=== PATIENT | male | born 1955 | race Caucasian/White ===

== ENCOUNTER 2021-09-03 08:45 | Outpatient (REF) | payer OTHER, SELFPAY ==
--- NOTE | ~2021-09-03 | XR_ITS ---
EXAMINATION: XR CHEST CLINICAL INFORMATION: Essential hypertension COMPARISON: None TECHNIQUE: 2 views of the chest were obtained. FINDINGS: The cardiac silhouette does not appear enlarged. Hilar and mediastinal contours are normal. There is question of an abnormal parenchymal density in the left upper lung overlying the posterior sixth rib. This measures approximately 1 cm. There is question of a 5 mm nodule in the right lateral costophrenic angle in between the right anterior seventh and eighth ribs. There is biapical pleural thickening. The lungs are otherwise clear. There is no pleural effusion or pneumothorax. There is loss of height of the L1 vertebral body suggestive of old moderate compression fracture. There are degenerative changes of the spine. XR/XR chest 2V IMPRESSION: Question abnormal parenchymal density in the left upper lung and 5 mm nodule in the right lateral costophrenic angle. Follow-up chest CT scan should be considered.
== END 2021-09-03 08:46 | disposition home or self-care (01) ==
LOC: HO.HMGCX 08:45
PROVIDERS: PCP Internal Medicine; Visit Provider Internal Medicine
DX: I10 Essential (primary) hypertension (principal); I73.9 Peripheral vascular disease, unspecified
CPT/HCPCS: 71046

== ENCOUNTER 2021-09-04 08:30 | Outpatient (REF) | payer OTHER, SELFPAY ==
[2021-09-04 11:38] LABS: Hematocrit 50.2 % (42-52); Hemoglobin 16.7 g/dl (14.0-18.0); Mean Corpuscular HGB Conc 33.3 g/dl (31.0-36.0); Mean Corpuscular Hemoglobin 33.7 pg (27.0-33.0); Mean Corpuscular Volume 101.2 fL (80-98); Mean Platelet Volume 9.9 fL (9.4-12.4); Platelet Count 263 X10*3/uL (160-400); Red Blood Count 4.96 X10*6/uL (4.60-5.80); Red Cell Distribution Width 13.8 % (11.0-16.0); White Blood Count 6.9 X10*3/uL (4.8-10.8)
[2021-09-04 11:44] LABS: Alanine Aminotransferase 14 U/L (0-40); Alkaline Phosphatase 109 U/L (39-117); Anion Gap 14 (12-20); Aspartate Amino Transferase 17 U/L (5-37); Bilirubin Total 0.9 mg/dL (0.0-1.0); Blood Urea Nitrogen 12 mg/dL (9-16); Calcium 9.2 mg/dL (8.4-10.2); Carbon Dioxide 27 mmol/L (22-29); Chloride 102 mmol/L (96-108); Cholesterol 231 mg/dL; Estimated Glomerular Filt Rate > 60; Glucose Fasting 102 mg/dL (60-99); HDL Cholesterol 36 mg/dL; LDL Cholesterol Calculated 163 mg/dl; Potassium 4.3 mmol/L (3.3-5.1); Sodium 139 mmol/L (135-145); Total Protein 7.1 g/dL (6.5-8.0); Triglycerides 162 mg/dL
[2021-09-04 12:10] LABS: Prostate Specific Antigen Scr 0.59 ng/mL (<0.05-4.0); TSH reflex Free T4 2.17 uIU/mL (0.32-4.0)
== END 2021-09-04 08:31 | disposition home or self-care (01) ==
LOC: HO.HMGCLDS 08:30
PROVIDERS: PCP Internal Medicine; Visit Provider Internal Medicine
DX: Z00.00 Encounter for general adult medical examination without abnormal findings (principal); I10 Essential (primary) hypertension; M65.30 Trigger finger, unspecified finger; R91.1 Solitary pulmonary nodule; R05.9 Cough, unspecified; F17.200 Nicotine dependence, unspecified, uncomplicated; Z12.5 Encounter for screening for malignant neoplasm of prostate
CPT/HCPCS: 36415; 80053; 80061; 84153; 84443; 85027

== ENCOUNTER 2021-09-17 07:32 | Outpatient (REF) | payer OTHER, SELFPAY ==
--- NOTE | ~2021-09-17 | CT_ITS ---
EXAMINATION: CT CHEST WITHOUT CONTRAST CLINICAL INFORMATION: Follow-up pulmonary nodule COMPARISON: Previous chest x-ray August 2021 TECHNIQUE: Multidetector volumetric CT imaging of the chest was done. Axial MIP volume rendering provided. Sagittal and coronal reformatted images were obtained. This CT examination was performed using dose optimization techniques as appropriate, variously including the following: *Automated exposure control *Adjustment of mA and/or kV according to patient size (this includes techniques or standardized protocols for targeted exams where dose is matched to indication/reason for exam; i.e. extremities or head) *Use of iterative reconstruction technique DLP: 197 mGy-cm FINDINGS: LUNGS: There are increased peripheral interstitial reticular markings. There are areas of increased peripheral groundglass attenuation. There are areas of traction bronchiolectasis. This is seen diffusely throughout the lungs but greatest at the lung bases. No honeycombing is seen. There is evidence of mild paraseptal emphysema. No endobronchial or endotracheal lesion is seen. There is a 2 mm peripheral left upper lobe nodule axial image 172 series 7. There is a 2 mm peripheral right lower lobe nodule axial image 230 series 7. There is question of a 4 mm right lower lobe nodule axial image 279 series 7 and axial image 361 series 7 versus changes related to interstitial lung disease. MEDIASTINUM: There are small mediastinal lymph nodes. The mediastinum is otherwise normal. PLEURA: There is no pleural effusion. No pleural mass or thickening. AXILLA: There are small bilateral axillary lymph nodes. No enlarged axillary lymph nodes or chest wall mass is seen. UPPER ABDOMEN: Unremarkable. OSSEOUS STRUCTURES: There are degenerative changes of the spine. There are old mild T12 and L1 vertebral body compression fractures versus Schmorl's nodes. CT/CT chest wo con IMPRESSION: Paraseptal emphysema. Mild peripheral interstitial lung disease. Pulmonary consultation may be helpful. Small pulmonary nodules or micronodules, largest measuring 4 mm.
== END 2021-09-17 07:33 | disposition home or self-care (01) ==
LOC: HO.CT 07:32
PROVIDERS: Visit Provider Internal Medicine
DX: R91.1 Solitary pulmonary nodule (principal); R05.9 Cough, unspecified; F17.200 Nicotine dependence, unspecified, uncomplicated
CPT/HCPCS: 71250

== ENCOUNTER 2021-09-24 14:01 | Outpatient (REF) | payer OTHER, SELFPAY ==
--- NOTE | ~2021-09-24 | XR_ITS ---
EXAMINATION: XR CHEST CLINICAL INFORMATION: Primary hypertension COMPARISON: Previous chest x-ray August [address] September 2021 TECHNIQUE: Frontal view of the chest was obtained. FINDINGS: The cardiac and mediastinal contours are stable. The lungs are clear. There is no pleural effusion or pneumothorax. There are degenerative changes of the spine. XR/XR chest 1V IMPRESSION: No evidence for acute disease in the chest.
--- NOTE | ~2021-09-24 | US_ITS ---
EXAMINATION: NONINVASIVE ASSESSMENT OF THE ARTERIES OF BOTH LOWER EXTREMITIES WITH PVR EXAM AND BILATERAL LOWER EXTREMITY DUPLEX CLINICAL INFORMATION: Peripheral vascular disease, bilateral TECHNIQUE: Bilateral lower extremity duplex Doppler techniques with wave form analysis and measurement of velocities in the common femoral, profunda femoral, superficial femoral, popliteal and tibial arteries. The study was performed only at rest. COMPARISON: None FINDINGS: a) AT REST: RIGHT LEG: Right direct duplex Doppler findings: There is evidence of atherosclerotic disease with vessel wall calcification. There is plaque seen in the right common femoral artery. Common femoral artery: 112 cm/s, Diastolic flow reversal: No biphasic. * Superficial femoral artery (proximal, mid, distal): 173, 76 and 137 cm/s, Diastolic flow reversal: No. Biphasic. * Popliteal artery: 81 cm/s, Diastolic flow reversal: Yes * Posterior tibial artery: 52 cm/s, Diastolic flow reversal: No. Biphasic. LEFT LEG: Left direct duplex Doppler findings: There is evidence of atherosclerotic disease. There is plaque seen in the left common femoral artery. * Common femoral artery: 38 cm/s, Diastolic flow reversal: No. Monophasic. * Superficial femoral artery (proximal, mid, distal): 38 cm/s proximally. The mid and distal left SFA is occluded. Diastolic flow reversal: No. Monophasic. * Popliteal artery: 24 cm/s, Diastolic flow reversal: No. Monophasic. * Posterior tibial artery: 19 cm/s, Diastolic flow reversal: No. Monophasic. * US/US arterial duplex LE BI IMPRESSION: Right: Mild atherosclerotic disease. Left: Severe atherosclerotic disease. Occluded mid and distal left superficial femoral artery. Abnormal left common femoral artery peak systolic velocity and waveform suggestive of left-sided inflow disease as well.
== END 2021-09-24 14:02 | disposition home or self-care (01) ==
LOC: HO.US 14:01
PROVIDERS: Visit Provider Internal Medicine
DX: I73.9 Peripheral vascular disease, unspecified (principal); I10 Essential (primary) hypertension
CPT/HCPCS: 71045; 93925

== ENCOUNTER 2021-10-22 08:26 | Outpatient (REF) | payer OTHER, SELFPAY ==
--- NOTE | ~2021-10-22 | US_ITS ---
EXAMINATION: US RETROPERITONEAL LIMITED (AORTA) CLINICAL INFORMATION: Peripheral vascular disease. Nicotine dependence. COMPARISON: None TECHNIQUE: Bills-scale, color Doppler and spectral Doppler evaluation of the abdominal aorta. FINDINGS: Is mild atherosclerotic plaque. The abdominal aorta is normal in caliber. The measurements of the aorta in maximum AP and transverse dimensions respectively are as follows: Proximal: 3.0 x 3.1 cm. Mid: 2.3 x 2.5 cm. Distal: 2.1 x 2.1 cm. PSV: 42 cm/s. The measurements of the common iliac arteries in maximum AP and TRV dimensions are as follows: Right: AP: 1.4 cm. TRV: 1.2 cm. Left: AP: 1.4 cm. TRV: 1.2 cm. US/US aorta IMPRESSION: No aneurysm seen.
== END 2021-10-22 08:27 | disposition home or self-care (01) ==
LOC: HO.HMGCX 08:26
PROVIDERS: PCP Internal Medicine; Visit Provider Internal Medicine
DX: I73.9 Peripheral vascular disease, unspecified (principal); F17.200 Nicotine dependence, unspecified, uncomplicated
CPT/HCPCS: 76775

== ENCOUNTER → 2021-10-30 10:12 | Outpatient (BNVA) | payer OTHER, SELFPAY | PROVIDERS: PCP Internal Medicine; Visit Provider Surgery Vascular Surgery ==

== ENCOUNTER 2021-11-07 05:57 | Day surgery (SDC) | payer OTHER, SELFPAY ==
[2021-11-07] VITALS (11 sets, daily range): BP systolic 112–140; BP diastolic 70–93; PULSE 64–78; RESP 16–18; TEMP 36.4–37.6; O2SAT 93–96; BMI 30.1
[2021-11-07 06:30] LABS: Basophils Percent Auto 0.5 % (0-2); Eosinophils Absolute Auto 0.3 X10*3/uL (0.0-0.4); Eosinophils Percent Auto 3.3 % (0-4); Hematocrit 45.8 % (42.0-52.0); Hemoglobin 15.1 g/dl (14.0-18.0); Imm Gran Abs Auto 0.03 X10*3/uL (0.00-0.03); Imm Gran Pct Auto 0.4 % (0.0-0.4); Lymphocytes Absolute Auto 2.3 X10*3/uL (1.2-4.9); Lymphocytes Percent Auto 26.7 % (20-40); MANUAL DIFF FLAG SCAN; Mean Corpuscular Hemoglobin 33.9 pg (27.0-33.0); Mean Corpuscular Volume 102.7 fL (80.0-98.0); Mean Platelet Volume 9.3 fL (9.4-12.4); Monocytes Absolute Auto 1.6 X10*3/uL (0.1-1.2); Monocytes Percent Auto 18.6 % (2-11); Neutrophils Absolute Auto 4.3 x10*3/uL (2.0-8.3); Neutrophils Percent Auto 50.5 % (45-73); Platelet Count 208 X10*3/uL (160-400); Red Blood Count 4.46 X10*6/uL (4.60-5.80); Red Cell Distribution Width 14.2 % (11.0-16.0); SCAN SMEAR FLAG 1; White Blood Count 8.5 X10*3/uL (4.8-10.8)
[2021-11-07 06:48] LABS: SLIDE REVIEW VERIFIED
[2021-11-07 06:54] LABS: Blood Urea Nitrogen 11 mg/dL (9-16); Creatinine Clr Calc Pharmacy 76.1; Estimated Glomerular Filt Rate > 60
[2021-11-07] MEDS: iohexoL 300 MG/ML 50 ML INFUS..BTL IV (09:03)
[2021-11-07] MEDS: 0.9 % Sodium Chloride 1,000 ML 100 ML IVCONT (09:15)
--- NOTE | 2021-11-07 09:20 | W.PM.OPN ---
Operative Note Operative Note Date of Service: 11/07/21 Narrative: Angiogram report from [facility] Preoperative diagnosis: Atherosclerosis of Bilateral lower extremity with activity limiting claudication Postoperative diagnosis: Same Procedure: 1. Ultrasound-guided right common femoral access 2. Aortogram with bilateral lower extremity runoff Surgeon:Rod Menendez M.D., FACS, RPVI Border Inspector:None Anesthesia: Local with moderate conscious sedation. Total intraservice moderate sedation time was 37 minutes. I monitored the patient's level of consciousness and physiologic status continuously throughout the procedure. Specimens:none Drains:none Estimated blood loss: Less than 10 ml Implant: none Indications: 66-year-old gentleman with a smoking history presents with bilateral lower extremity claudication. He is unable to ambulate more than a block. Noninvasive testing demonstrated left SFA disease. He now presents for endovascular intervention The patient has signed the informed consent after reviewing risks, complications, benefits, and alternatives previously discussed with the patient. The patient was given the opportunity to ask any additional questions or voice any concerns. All questions were answered to the patient's satisfaction. Procedure in detail: Patient was brought to the angiography suite prior to which a time-out was called for patient identification and site verification. Bilateral groins were prepped and draped in the standard surgical fashion. Under ultrasound guidance right common femoral was punctured with micro puncture needle and wire. Subsequently a precision 4 Kiswahili sheath was then placed. Bentson wire was advanced to the level of the aorta. 4 Kiswahili Flush catheter was brought up and parked at the level of the renal arteries. Aortogram was then undertaken. Catheter was brought down to the level of the iliac bifurcation. Iliacs were subsequently imaged. Catheter was then brought in up and over to the left side common iliac. Runoff study was then undertaken. no intervention was possible. Through the sheath right runoff study was then undertaken. Catheter wire sheath was removed and 10 minutes of direct pressure was held. Interpretation of films: 1. Ultrasound demonstrates appropriate femoral puncture. Image of which was saved. 2. Aortogram demonstrates appropriate caliber aorta. Minimal disease. Appropriate take-off of the renals. 3. Iliac images demonstrate Right side no significant disease. Left side external iliac occlusion with reconstitution at the common femoral 4. left Leg Common femoral artery: no significant disease Profundus Femoris: No significant disease Superficial femoral artery: mid SFA total occlusion reconstitution at the above knee popliteal Popliteal artery (p1,p2,p3): patent Anterior tibial artery: patent Peroneal artery: patent but diminutive Posterior tibial artery: patent Dorsalis pedis/plantar arch: intact 5. right Leg Common femoral artery: no significant disease Profundus Femoris: No significant disease Superficial femoral artery: mid SFA high degree stenosis Popliteal artery (p1,p2,p3): patent Anterior tibial artery: patent Peroneal artery: patent but diminutive Posterior tibial artery: patent Dorsalis pedis/plantar arch: intact Conclusion: 1. successful diagnostic angiogram. Should symptoms persist he will require femoral to femoral bypass right to left. Will discuss with patient at follow-up visit. 2. Anticoagulation status: No change This note is constructed using voice recognition software. While every effort has been made to ensure accuracy, operations assistant errors may have been included. Thank you for allowing me to participate in the care of your patient. Yours sincerely, Rod Menendez MD, FACS, R.P.V.I.
== END 2021-11-07 13:15 | disposition home or self-care (01) ==
PROVIDERS: PCP Internal Medicine; Visit Provider Surgery Vascular Surgery
DX: I70.213 Atherosclerosis of native arteries of extremities with intermittent claudication, bilateral legs (principal); F17.210 Nicotine dependence, cigarettes, uncomplicated
CPT/HCPCS: 36246; 36415; 75630; 76937; 82565; 84520; 85025; 99152; 99153; C1769; C1887; J2250; J3010; Q9967

== ENCOUNTER → 2021-11-20 08:56 | Outpatient (BNVA) | payer OTHER, SELFPAY | PROVIDERS: PCP Internal Medicine; Visit Provider Surgery Vascular Surgery ==

== ENCOUNTER 2021-11-27 08:48 | Outpatient (REF) | payer OTHER, SELFPAY ==
[2021-11-27 12:10] LABS: Alanine Aminotransferase 15 U/L (0-40); Albumin Level 4.1 g/dL (3.5-5.0); Alkaline Phosphatase 110 U/L (39-117); Anion Gap 12 (12-20); Aspartate Amino Transferase 14 U/L (5-37); Bilirubin Total 0.5 mg/dL (0.0-1.0); Blood Urea Nitrogen 12 mg/dL (9-16); Calcium 9.4 mg/dL (8.4-10.2); Carbon Dioxide 29 mmol/L (22-29); Chloride 104 mmol/L (96-108); Cholesterol 141 mg/dL; Estimated Glomerular Filt Rate > 60; Glucose Fasting 82 mg/dL (60-99); HDL Cholesterol 34 mg/dL; LDL Cholesterol Calculated 82 mg/dl; Potassium 4.8 mmol/L (3.3-5.1); Sodium 140 mmol/L (135-145); Total Protein 7.3 g/dL (6.5-8.0); Triglycerides 128 mg/dL
== END 2021-11-27 08:49 | disposition home or self-care (01) ==
LOC: HO.HMGCLDS 08:48
PROVIDERS: Visit Provider Internal Medicine
DX: E78.5 Hyperlipidemia, unspecified (principal); I10 Essential (primary) hypertension; R09.89 Other specified symptoms and signs involving the circulatory and respiratory systems
CPT/HCPCS: 36415; 80053; 80061

== ENCOUNTER 2022-01-25 11:59 | Outpatient (REF) | payer OTHER, SELFPAY ==
[2022-01-25 13:52] LABS: Hematocrit 43.4 % (42.0-52.0); Hemoglobin 14.3 g/dl (14.0-18.0); Mean Corpuscular HGB Conc 32.9 g/dl (31.0-36.0); Mean Corpuscular Volume 103.1 fL (80.0-98.0); Mean Platelet Volume 9.7 fL (9.4-12.4); Platelet Count 273 X10*3/uL (160-400); Red Blood Count 4.21 X10*6/uL (4.60-5.80); Red Cell Distribution Width 14.4 % (11.0-16.0); White Blood Count 8.5 X10*3/uL (4.8-10.8)
[2022-01-25 14:13] LABS: Alanine Aminotransferase 17 U/L (0-40); Albumin Level 4.1 g/dL (3.5-5.0); Alkaline Phosphatase 94 U/L (39-117); Anion Gap 11 (12-20); Aspartate Amino Transferase 17 U/L (5-37); Bilirubin Total 0.6 mg/dL (0.0-1.0); Blood Urea Nitrogen 11 mg/dL (9-16); Calcium 9.6 mg/dL (8.4-10.2); Carbon Dioxide 27 mmol/L (22-29); Chloride 104 mmol/L (96-108); Cholesterol 119 mg/dL; Estimated Glomerular Filt Rate > 60; Glucose Fasting 92 mg/dL (60-99); HDL Cholesterol 29 mg/dL; LDL Cholesterol Calculated 68 mg/dl; Potassium 4.9 mmol/L (3.3-5.1); Sodium 137 mmol/L (135-145); Total Protein 7.2 g/dL (6.5-8.0); Triglycerides 111 mg/dL
== END 2022-01-25 12:00 | disposition home or self-care (01) ==
LOC: HO.HMGCLDS 11:59
PROVIDERS: PCP Internal Medicine; Visit Provider Internal Medicine
DX: E78.5 Hyperlipidemia, unspecified (principal); R09.89 Other specified symptoms and signs involving the circulatory and respiratory systems
CPT/HCPCS: 36415; 80053; 80061; 85027

== ENCOUNTER 2022-01-29 09:35 | Outpatient (REF) | payer OTHER, SELFPAY ==
[2022-01-29 12:24] LABS: Folate 8.9 ng/mL (> or = 4.0); Vitamin B12 194 pg/mL (200-900)
== END 2022-01-29 09:36 | disposition home or self-care (01) ==
LOC: HO.HMGCLDS 09:35
PROVIDERS: Visit Provider Internal Medicine
DX: D53.9 Nutritional anemia, unspecified (principal)
CPT/HCPCS: 36415; 82607; 82746

== ENCOUNTER → 2022-04-02 13:48 | Outpatient (BNVA) | payer OTHER, SELFPAY | PROVIDERS: PCP Internal Medicine; Visit Provider Surgery Vascular Surgery | DX: I73.9 Peripheral vascular disease, unspecified (principal) ==

== ENCOUNTER 2023-09-05 13:15 | Outpatient (AMB) | payer MEDICARE, SELFPAY ==
--- NOTE | 2023-09-05 13:21 | MHC.PC.OV ---
Vital Signs 09/05/23 13:22 Height 5 ft 8 in Weight 190 lb BMI 28.9 BP 116/70 Blood Pressure Location Rt brachial Position Sitting Pulse 71 Pulse Source Pulse Oximeter Pulse Oximetry (%) 96 Oxygen Delivery Method Room Air Intake Visit Reasons: PE Intake Note: Pt is here today for PE. Pt states that he would like to see a different specialist for his legs and vascular problems. Allergies Penicillins Adverse Reaction (Verified 09/05/23 13:24) Shortness of Breath Medication List - Last Reconciled 09/05/23 by Alla Oro MD atorvastatin (Lipitor) 40 mg PO DAILY bupropion HCl 150 mg PO BID cyanocobalamin (vitamin B-12) 1,000 mcg PO DAILY [id number]-[id number]-brcqdftn 200-62.5-25 mcg (Trelegy Ellipta) 1 inh inhalation DAILY olmesartan 20 mg PO DAILY Tobacco use date assessed: 09/05/23 Fall risk assessment: No Falls in past year Last assessed Fall Risk: 09/05/23 Dental Screening Dental Screen Date: 09/05/23 Did you have a dental visit in the last 12 months?: No Did you have a dental problem in the last 6 months where you did not have access to dental care?: No Was dental information given to patient?: Patient declined HPI PE HPI Details Pt presents for PE. Patient reports feeling of of both leg heaviness and denies claudication. He has not been physically active. Patient follows up with Dr. Menendez but is interested in 2nd opinion for peripheral vascular disease. He continues to smoke a pack a day and is not ready to quit. [facility] Medical History Vitamin B 12 deficiency Macrocytic anemia COPD (chronic obstructive pulmonary disease) Hyperlipidemia Bilateral carotid bruits PVD (peripheral vascular disease) with claudication Tobacco dependence Lung nodule Cough Claudication Trigger finger Annual physical exam HTN (hypertension) Family History Father No problems noted. 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 1. Little interest or pleasure in doing things: not at all 2. Feeling down, depressed, or hopeless: not at all 3. Trouble falling or staying asleep, or sleeping too much: not at all 4. Feeling tired or having little energy: several days 5. Poor appetite or overeating: not at all 6. Feeling bad about yourself - or that you are a failure or have let yourself or your family down: not at all 7. Trouble concentrating on things, such as reading the newspaper or watching television: not at all 8. Moving or speaking so slowly that other people could have noticed. Or the opposite - being so fidgety or restless that you have been moving around a lot more than usual: not at all 9. Thoughts that you would be better off or of hurting yourself in some way: not at all Total score: 1 Depression Screening Interpretation: Negative Depression Screening Done: Yes Source: Developed by Drs. Jasiel Morris, Ghislaine Davison, Damion Mccarthy and colleagues, with an educational betty from [employer]. Thrive Questionnaire Date Thrive assessed: 09/05/23 I am a: Patient What is your living situation today?: I have a steady place to live Within the past 12 months, did the food you bought not last and you didn't have the money to get more?: Never true Within the past 12 months, did you worry whether your food would run out before you got money to buy more?: Never true Do you have trouble paying for medicines?: No Do you have trouble getting transportation to medical appointments?: No Do you have trouble paying your heating and electricity bill?: No Do you have trouble taking care of your child, family member or friend?: No Do you have trouble with day-to-day activities such as bathing, preparing meals, shopping, managing finances, etc.?: No Are you currently unemployed and looking for a job?: No Are you interested in more education?: No Please select the resources that you would like help with: None Currently or been in a relationship where the following occur: no concerns reported AUDIT C Alcohol Use Questionnaire (AUDIT-C) 1. How often do you have a drink containing alcohol?: Never 3. How often do you have six or more drinks on one occasion?: Never Total Score: 0 KRISTOPHER-7 AMB Questionnaire KRISTOPHER-7 Date KRISTOPHER - 7 assessed: 09/05/23 Feeling nervous, anxious, or on edge: 0 = Not at all Not being able to stop or control worryin = Not at all Worrying too much about different things: 0 = Not at all Trouble relaxin = Not at all Being so restless that it is hard to sit still: 0 = Not at all Becoming easily annoyed or irritable: 0 = Not at all Feeling afraid as if something awful might happen: 0 = Not at all Total KRISTOPHER-7 score (0-4 normal; 5-9 mild; 10-14 moderate; 15-21 severe): 0 Source: Developed by Drs. Jasiel Morris, Ghislaine Davison, Damion Mccatrhy and colleagues, with an educational betty from [employer]. Review of Systems Const All systems reviewed & are unremarkable except as noted in HPI and below Reports no additional complaints Eyes Reports no additional complaints ENT Reports no additional complaints Card Reports no additional complaints Resp Reports no additional complaints GI Reports no additional complaints Reports no additional complaints Musc Reports no additional complaints Physical exam (Primary Care) Vital Signs: Last Vital Signs Pulse 71 09/05/23 13:22 BP 116/70 09/05/23 13:22 Pulse Ox 96 09/05/23 13:22 Oxygen Delivery Method Room Air 09/05/23 13:22 BMI result Body Mass Index 28.9 Tobacco/Smoking Status: Tobacco use Status Tobacco use date assessed 09/05/23 09/05/23 13:31 Patient Tobacco Use Status Current everyday Tobacco 09/05/23 13:31 Tobacco use type Cigarette 09/05/23 13:21 e-Cigarette/Vaping Use Never Used 09/05/23 13:21 PHQ-9: PHQ-9 Score PHQ-9: Total score 1 09/05/23 13:56 Depression Screening Interpretation: Negative Thrive Assessment: Date of Thrive Assessment Date Thrive assessed 09/05/23 09/05/23 13:31 Currently or been in a relationship where the following occur: no concerns reported Const General: no acute distress HENMT Head: Yes normal to inspection General nose exam: Normal external nose present Face and sinus: Yes normal facial exam Throat: Yes posterior oropharynx normal Eyes General: appearance normal, both eyes and all related structures Neck Neck: Yes no lymphadenopathy and Yes supple Resp Effort & Inspection: normal respiratory effort Auscultation: diminished lung sounds Cardio Rhythm: regular rhythm Heart sounds: S1 normal heart sound present and S2 normal heart sound present GI Inspection: Yes normal to inspection Palpation (GI): Soft to palpation Percussion: Yes normal to percussion Auscultation: normal bowel sounds Assessment and Plan Assessment & Plan (1) Vitamin B 12 deficiency: Code(s): E53.8 - Deficiency of other specified B group vitamins Plan: Continue B12 supplement. Patient will return for fasting labs to check the level (2) PAD (peripheral artery disease): Comment: 11/07/2021- diagnostic angiogram Code(s): I73.9 - Peripheral vascular disease, unspecified Plan: Follow-up with vascular surgeon (3) COPD (chronic obstructive pulmonary disease): Comment: Patient refused to use Trelegy Code(s): J44.9 - Chronic obstructive pulmonary disease, unspecified Plan: Tobacco quitting discussed with the patient (4) Hyperlipidemia: Code(s): E78.5 - Hyperlipidemia, unspecified Plan: Continue statin (5) Annual physical exam: Code(s): Z00.00 - Encounter for general adult medical examination without abnormal findings Plan: Well-balanced diet regular physical activity discussed with the patient. He declined colonoscopy Cologuard will be sent (6) HTN (hypertension): Code(s): I10 - Essential (primary) hypertension Plan: Continue current medications (7) Tobacco dependence: Comment: Lung CA consistent with small nodules and COPD 08/2021 Code(s): F17.200 - Nicotine dependence, unspecified, uncomplicated Plan: Patient declined screening CT of the chest Medications: Discontinued bupropion HCl 1 TABL QD FOR 1 WEEK, THEN 1 tabl po BID Discontinued Reason: Doctor's Order 150 mg PO BID 60 tabs 3RF Coding Level of Care Code Est Pt Prev Care >65y(31507) Diagnoses Vitamin B 12 deficiency E53.8 PAD (peripheral artery disease) I73.9 COPD (chronic obstructive pulmonary disease) J44.9 Hyperlipidemia E78.5 Annual physical exam Z00.00 HTN (hypertension) I10 Tobacco dependence F17.200
[2023-09-05 13:22] VITALS: BP 116/70; PULSE 71; O2SAT 96; BMI 28.9
== END 2023-09-05 14:20 | disposition home or self-care (01) ==
PROVIDERS: PCP Internal Medicine; Visit Provider Internal Medicine
DX: E53.8 Deficiency of other specified B group vitamins (principal); I73.9 Peripheral vascular disease, unspecified; J44.9 Chronic obstructive pulmonary disease, unspecified; E78.5 Hyperlipidemia, unspecified; Z00.00 Encounter for general adult medical examination without abnormal findings; I10 Essential (primary) hypertension; F17.200 Nicotine dependence, unspecified, uncomplicated
CPT/HCPCS: 99397

== ENCOUNTER 2023-09-08 11:09 | Outpatient (REF) | payer MEDICARE, SELFPAY ==
[2023-09-08 13:08] LABS: MANUAL DIFF FLAG NO
[2023-09-08 13:33] LABS: Basophils Absolute Auto 0.1 X10*3/uL (0.0-0.2); Basophils Percent Auto 0.6 % (0-2); Eosinophils Absolute Auto 0.3 X10*3/uL (0.0-0.4); Eosinophils Percent Auto 3.2 % (0-4); Hematocrit 46.8 % (42.0-52.0); Hemoglobin 15.4 g/dl (14.0-18.0); Imm Gran Abs Auto 0.02 X10*3/uL (0.00-0.03); Imm Gran Pct Auto 0.2 % (0.0-0.4); Lymphocytes Absolute Auto 2.7 X10*3/uL (1.2-4.9); Lymphocytes Percent Auto 31.8 % (20-40); Mean Corpuscular HGB Conc 32.9 g/dl (31.0-36.0); Mean Corpuscular Hemoglobin 33.6 pg (27.0-33.0); Mean Platelet Volume 9.6 fL (9.4-12.4); Monocytes Absolute Auto 1.1 X10*3/uL (0.1-1.2); Monocytes Percent Auto 12.7 % (2-11); Neutrophils Absolute Auto 4.4 x10*3/uL (2.0-8.3); Neutrophils Percent Auto 51.5 % (45-73); Platelet Count 273 X10*3/uL (160-400); Red Blood Count 4.59 X10*6/uL (4.60-5.80); Red Cell Distribution Width 14.5 % (11.0-16.0); White Blood Count 8.5 X10*3/uL (4.8-10.8)
[2023-09-08 13:54] LABS: Alanine Aminotransferase 14 U/L (0-40); Alkaline Phosphatase 80 U/L (39-117); Anion Gap 13 (12-20); Aspartate Amino Transferase 14 U/L (5-37); Bilirubin Total 0.4 mg/dL (0.0-1.0); Blood Urea Nitrogen 11 mg/dL (9-16); Calcium 9.3 mg/dL (8.4-10.2); Carbon Dioxide 28 mmol/L (22-29); Chloride 105 mmol/L (96-108); Cholesterol 193 mg/dL (<200); Estimated Glomerular Filt Rate > 60; Glucose Fasting 104 mg/dL (60-99); HDL Cholesterol 32 mg/dL (>40); LDL Cholesterol Calculated 134 mg/dL (<100); Potassium 4.8 mmol/L (3.3-5.1); Sodium 141 mmol/L (135-145); Total Protein 7.3 g/dL (6.5-8.0); Triglycerides 136 mg/dL (<150)
[2023-09-08 13:58] LABS: PSA,Total (Free>4and<10) 0.59 ng/mL (0.00-4.00)
[2023-09-08 14:11] LABS: Folate 8.9 ng/mL (> or = 4.0); Vitamin B12 515 pg/mL (200-900)
== END 2023-09-08 11:10 | disposition home or self-care (01) ==
LOC: HO.HMGCLDS 11:09
PROVIDERS: PCP Internal Medicine; Visit Provider Internal Medicine
DX: E53.8 Deficiency of other specified B group vitamins (principal); D53.9 Nutritional anemia, unspecified; E78.5 Hyperlipidemia, unspecified; I10 Essential (primary) hypertension; Z12.5 Encounter for screening for malignant neoplasm of prostate
CPT/HCPCS: 36415; 80053; 80061; 82607; 82746; 84153; 85025

== ENCOUNTER 2024-09-07 10:27 | Outpatient (REF) | payer MEDICARE, SELFPAY ==
[2024-09-07 13:23] LABS: MANUAL DIFF FLAG NO
[2024-09-07 13:49] LABS: Basophils Absolute Auto 0.1 X10*3/uL (0.0-0.2); Basophils Percent Auto 0.6 % (0-2); Eosinophils Absolute Auto 0.2 X10*3/uL (0.0-0.4); Eosinophils Percent Auto 1.5 % (0-4); Hematocrit 47.2 % (42.0-52.0); Hemoglobin 16.2 g/dl (14.0-18.0); Imm Gran Abs Auto 0.03 X10*3/uL (0.00-0.03); Imm Gran Pct Auto 0.3 % (0.0-0.4); Lymphocytes Absolute Auto 2.4 X10*3/uL (1.2-4.9); Lymphocytes Percent Auto 22.4 % (20-40); Mean Corpuscular HGB Conc 34.3 g/dl (31.0-36.0); Mean Corpuscular Hemoglobin 34.5 pg (27.0-33.0); Mean Corpuscular Volume 100.4 fL (80.0-98.0); Mean Platelet Volume 9.7 fL (9.4-12.4); Monocytes Absolute Auto 1.1 X10*3/uL (0.1-1.2); Neutrophils Percent Auto 65.2 % (45-73); Platelet Count 244 X10*3/uL (160-400); Red Cell Distribution Width 14.6 % (11.0-16.0); White Blood Count 10.7 X10*3/uL (4.8-10.8)
[2024-09-07 14:06] LABS: Alanine Aminotransferase 9 U/L (0-40); Alkaline Phosphatase 74 U/L (39-117); Anion Gap 10 (12-20); Aspartate Amino Transferase 23 U/L (5-37); Bilirubin Total 0.5 mg/dL (0.0-1.0); Blood Urea Nitrogen 14 mg/dL (9-16); Calcium 9.3 mg/dL (8.4-10.2); Carbon Dioxide 27 mmol/L (22-29); Chloride 106 mmol/L (96-108); Cholesterol 205 mg/dL (<200); Estimated Glomerular Filt Rate > 60; Glucose Fasting 95 mg/dL (60-99); HDL Cholesterol 29 mg/dL (>40); LDL Cholesterol Calculated 147 mg/dL (<100); Potassium 4.4 mmol/L (3.3-5.1); Sodium 139 mmol/L (135-145); Total Protein 7.3 g/dL (6.5-8.0); Triglycerides 147 mg/dL (<150)
[2024-09-07 14:16] LABS: PSA,Total (Free>4and<10) 0.55 ng/mL (0.00-4.00)
[2024-09-07 14:28] LABS: Folate 6.3 ng/mL (> or = 4.0); Vitamin B12 318 pg/mL (200-900)
== END 2024-09-07 10:28 | disposition home or self-care (01) ==
LOC: HO.HMGCLDS 10:27
PROVIDERS: PCP Internal Medicine; Visit Provider Internal Medicine
DX: E53.8 Deficiency of other specified B group vitamins (principal); J44.9 Chronic obstructive pulmonary disease, unspecified; I73.9 Peripheral vascular disease, unspecified; E78.5 Hyperlipidemia, unspecified; R91.1 Solitary pulmonary nodule; D53.9 Nutritional anemia, unspecified; Z12.5 Encounter for screening for malignant neoplasm of prostate
CPT/HCPCS: 36415; 80053; 80061; 82607; 82746; 84153; 85025; 96127; 99397

== ENCOUNTER 2024-09-07 10:27 | Outpatient (AMB) | payer MEDICARE, SELFPAY ==
[2024-09-07 10:30] VITALS: BP 128/78; PULSE 85; O2SAT 95; BMI 28.1
--- NOTE | 2024-09-07 10:30 | A.OFFPC_ITS ---
Vital Signs 09/07/24 10:30 Height 5 ft 8 in Weight 185 lb BMI 28.1 BP 128/78 Blood Pressure Location Rt brachial Position Sitting Pulse 85 Pulse Source Pulse Oximeter Pulse Oximetry (%) 95 Oxygen Delivery Method Room Air Intake Visit Reasons: PE - see comments Intake Note: Pt is here today for PE. Allergies Penicillins Adverse Reaction (Verified 09/07/24 10:31) Shortness of Breath Medication List - Last Reconciled 09/07/24 by Alla Oro MD atorvastatin (Lipitor) 40 mg PO DAILY cyanocobalamin (vitamin B-12) 1,000 mcg PO DAILY [id number]-qqwaxnbrp-eacjpruo 200-62.5-25 mcg (Trelegy Ellipta) 1 inh inhalation DAILY olmesartan 20 mg PO DAILY Tobacco use date assessed: 09/07/24 Fall risk assessment: No Falls in past year Last assessed Fall Risk: 09/07/24 Dental Screening Dental Screen Date: 09/07/24 Did you have a dental visit in the last 12 months?: No Did you have a dental problem in the last 6 months where you did not have access to dental care?: No Was dental information given to patient?: Patient declined HPI PE - see comments HPI Details Pt presents for PE. He stopped taking meds because of diarrhea, which resolved after stopping meds. [facility] Medical History Vitamin B 12 deficiency Macrocytic anemia COPD (chronic obstructive pulmonary disease) Hyperlipidemia Bilateral carotid bruits Tobacco dependence Lung nodule Trigger finger Annual physical exam HTN (hypertension) Surgical History No pertinent past surgical history Family History Father No problems noted. 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 1. Little interest or pleasure in doing things: not at all 2. Feeling down, depressed, or hopeless: not at all 3. Trouble falling or staying asleep, or sleeping too much: not at all 4. Feeling tired or having little energy: several days 5. Poor appetite or overeating: not at all 6. Feeling bad about yourself - or that you are a failure or have let yourself or your family down: not at all 7. Trouble concentrating on things, such as reading the newspaper or watching television: not at all 8. Moving or speaking so slowly that other people could have noticed. Or the opposite - being so fidgety or restless that you have been moving around a lot more than usual: not at all 9. Thoughts that you would be better off or of hurting yourself in some way: not at all Total score: 1 Depression Screening Interpretation: Negative Depression Screening Done: Yes 22392 - PHQ-9 Billing: Yes Source: Developed by Drs. Jasiel Morris, Ghislaine Davison, Damion Mccarthy and colleagues, with an educational betty from [employer]. Thrive Questionnaire Date Thrive assessed: 09/07/24 I am a: Patient What is your living situation today?: I choose not to answer this question Within the past 12 months, did the food you bought not last and you didn't have the money to get more?: I choose not to answer this question Within the past 12 months, did you worry whether your food would run out before you got money to buy more?: I choose not to answer this question Do you have trouble paying for medicines?: I choose not to answer this question Do you have trouble getting transportation to medical appointments?: I choose not to answer this question Do you have trouble paying your heating and electricity bill?: I choose not to answer this question Do you have trouble taking care of your child, family member or friend?: I choose not to answer this question Do you have trouble with day-to-day activities such as bathing, preparing meals, shopping, managing finances, etc.?: I choose not to answer this question Are you currently unemployed and looking for a job?: I choose not to answer this question Are you interested in more education?: I choose not to answer this question Please select the resources that you would like help with: None Currently or been in a relationship where the following occur: I choose not to answer THRIVE Score: 0 AUDIT C Alcohol Use Questionnaire (AUDIT-C) 1. How often do you have a drink containing alcohol?: Never 3. How often do you have six or more drinks on one occasion?: Never Total Score: 0 KRISTOPHER-7 AMB Questionnaire KRISTOPHER-7 Date KRISTOPHER - 7 assessed: 09/07/24 Feeling nervous, anxious, or on edge: 0 = Not at all Not being able to stop or control worryin = Not at all Worrying too much about different things: 0 = Not at all Trouble relaxin = Not at all Being so restless that it is hard to sit still: 0 = Not at all Becoming easily annoyed or irritable: 0 = Not at all Feeling afraid as if something awful might happen: 0 = Not at all Total KRISTOPHER-7 score (0-4 normal; 5-9 mild; 10-14 moderate; 15-21 severe): 0 Source: Developed by Drs. Jasiel Morris, Ghislaine Davison, Damion Mccarthy and colleagues, with an educational betty from [employer]. KRISTOPHER-7 Assessment Billing KRISTOPHER-7 Assessment Tool: KRISTOPHER-7 Assessment 46784 Review of Systems Const All systems reviewed & are unremarkable except as noted in HPI and below Eyes Reports no additional complaints ENT Reports no additional complaints Card Reports no additional complaints Resp Reports no additional complaints GI Reports no additional complaints Reports no additional complaints Physical exam (Primary Care) Vital Signs: Last Vital Signs Pulse 85 09/07/24 10:30 BP 128/78 09/07/24 10:30 Pulse Ox 95 09/07/24 10:30 Oxygen Delivery Method Room Air 09/07/24 10:30 BMI result Body Mass Index 28.1 Tobacco/Smoking Status: Tobacco use Status Tobacco use date assessed 09/07/24 09/07/24 10:34 Patient Tobacco Use Status Current everyday Tobacco 09/07/24 10:34 Tobacco use type Cigarette 09/07/24 10:34 e-Cigarette/Vaping Use Never Used 09/07/24 10:34 PHQ-9: PHQ-9 Score PHQ-9: Total score 1 10/29/24 10:34 Depression Screening Interpretation: Negative Thrive Assessment: Date of Thrive Assessment Date Thrive assessed 09/07/24 09/07/24 10:34 Currently or been in a relationship where the following occur: I choose not to answer Const General: no acute distress HENMT Head: Yes normal to inspection Ears: hearing grossly normal bilaterally Face and sinus: Yes normal facial exam Throat: Yes posterior oropharynx normal Eyes General: appearance normal, both eyes and all related structures Neck Neck: Yes no lymphadenopathy and Yes supple Resp Effort & Inspection: normal respiratory effort Auscultation: clear to auscultation bilaterally Cardio Rhythm: regular rhythm Heart sounds: S1 normal heart sound present and S2 normal heart sound present GI Inspection: Yes normal to inspection Palpation (GI): Soft to palpation Percussion: Yes normal to percussion Auscultation: normal bowel sounds Coding Level of Care Code Est Pt Prev Care >65y(94803) Diagnoses Hyperlipidemia E78.5 COPD (chronic obstructive pulmonary disease) J44.9 PAD (peripheral artery disease) I73.9 Vitamin B 12 deficiency E53.8 Additional Codes KRISTOPHER-7 Assessment Billing - KRISTOPHER-7 Assessment Tool: KRISTOPHER-7 Assessment 71426 ([id number]) Assessment & Plan Assessment & Plan (1) Hyperlipidemia: Comment: STOPPED ATORVASTATIN BECAUSE OF DIARRHEA Code(s): E78.5 - Hyperlipidemia, unspecified Category: Medical Plan: Check lipid profile today (2) COPD (chronic obstructive pulmonary disease): Comment: Patient refused to use Trelegy Code(s): J44.9 - Chronic obstructive pulmonary disease, unspecified Category: Medical Plan: Tobacco quitting discussed with the patient (3) PAD (peripheral artery disease): Comment: 11/07/2021- diagnostic angiogram, LLE severe stenosis on doppler Code(s): I73.9 - Peripheral vascular disease, unspecified Category: Medical Plan: Follow-up with vascular surgeon as needed patient declined surgeon (4) Vitamin B 12 deficiency: Code(s): E53.8 - Deficiency of other specified B group vitamins Category: Medical Plan: Continue vitamin B12 Orders: Orders Lipid Panel Today E53.8 - Deficiency of other specified B group vitamins, E78.5 - Hyperlipidemia, unspecified, I73.9 - Peripheral vascular disease, unspecified, J44.9 - Chronic obstructive pulmonary disease, unspecified, R91.1 - Solitary pulmonary nodule Complete Blood Count Auto Diff Today E53.8 - Deficiency of other specified B group vitamins, E78.5 - Hyperlipidemia, unspecified, I73.9 - Peripheral vascular disease, unspecified, J44.9 - Chronic obstructive pulmonary disease, unspecified, R91.1 - Solitary pulmonary nodule PSA,Total (Free>4and<10) Today E53.8 - Deficiency of other specified B group vitamins, E78.5 - Hyperlipidemia, unspecified, I73.9 - Peripheral vascular disease, unspecified, J44.9 - Chronic obstructive pulmonary disease, unspecified, R91.1 - Solitary pulmonary nodule Comprehensive [place]. Panel Fast Today E53.8 - Deficiency of other specified B group vitamins, E78.5 - Hyperlipidemia, unspecified, I73.9 - Peripheral vascular disease, unspecified, J44.9 - Chronic obstructive pulmonary disease, unspecified, R91.1 - Solitary pulmonary nodule Vitamin B12 and Folate Today D53.9 - Nutritional anemia, unspecified, E53.8 - Deficiency of other specified B group vitamins Medications: Discontinued atorvastatin (Lipitor) Discontinued Reason: Doctor's Order 40 mg PO DAILY 90 tabs 3RF khbvbcyfbfq-dnfvbzexq-hovftfvm 200-62.5-25 mcg (Trelegy Ellipta) Discontinued Reason: Doctor's Order 1 inh inhalation DAILY 60 ea 1RF olmesartan Discontinued Reason: Doctor's Order 20 mg PO DAILY 90 tabs 1RF
== END 2024-09-07 11:02 | disposition home or self-care (01) ==
LOC: HO.HMCC 10:28
PROVIDERS: PCP Internal Medicine; Visit Provider Internal Medicine
DX: Z00.00 Encounter for general adult medical examination without abnormal findings (principal); E78.5 Hyperlipidemia, unspecified; J44.9 Chronic obstructive pulmonary disease, unspecified; I73.9 Peripheral vascular disease, unspecified; E53.8 Deficiency of other specified B group vitamins

== ENCOUNTER 2024-12-21 08:47 | Outpatient (AMB) | payer MEDICARE, SELFPAY ==
[2024-12-21 08:53] VITALS: BP 124/70; PULSE 98; RESP 20; TEMP 36.7; O2SAT 94; BMI 28.4
--- NOTE | 2024-12-21 08:53 | MHC.PC.OV ---
Vital Signs 12/21/24 08:53 Height 5 ft 8 in Weight 187 lb BMI 28.4 BP 124/70 Blood Pressure Location Rt brachial Position Sitting Respiration 20 Pulse 98 Pulse Source Pulse Oximeter Temp 98.1 F Temp Source Oral Pulse Oximetry (%) 94 Oxygen Delivery Method Room Air Intake Visit Reasons: Strong shoulder pain Intake Note: Pt is here today for a sick visit. Pt c/o sharp L shoulder pain for couple months now. Allergies Penicillins Adverse Reaction (Verified 12/21/24 08:59) Shortness of Breath Medication List - Last Reconciled 12/21/24 by Alla Oro MD acetaminophen ER (Tylenol 8 Hour) 650 mg PO Q12H cyanocobalamin (vitamin B-12) 1,000 mcg PO DAILY Tobacco use date assessed: 12/21/24 Fall risk assessment: No Falls in past year Last assessed Fall Risk: 12/21/24 Dental Screening Dental Screen Date: 12/21/24 Did you have a dental visit in the last 12 months?: No Did you have a dental problem in the last 6 months where you did not have access to dental care?: No Was dental information given to patient?: Patient declined HPI Strong shoulder pain HPI Details Pt c/o chronic L shoulder pain for 3 months worse when trying use it or lift above head. He denies any injury and no recent use. He denies joint swelling and pain at rest PFSH Medical History Vitamin B 12 deficiency Macrocytic anemia COPD (chronic obstructive pulmonary disease) Hyperlipidemia Bilateral carotid bruits Tobacco dependence Lung nodule Trigger finger Annual physical exam HTN (hypertension) Surgical History No pertinent past surgical history Family History Father No problems noted. 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 1. Little interest or pleasure in doing things: not at all 2. Feeling down, depressed, or hopeless: not at all 3. Trouble falling or staying asleep, or sleeping too much: not at all 4. Feeling tired or having little energy: not at all 5. Poor appetite or overeating: not at all 6. Feeling bad about yourself - or that you are a failure or have let yourself or your family down: not at all 7. Trouble concentrating on things, such as reading the newspaper or watching television: not at all 8. Moving or speaking so slowly that other people could have noticed. Or the opposite - being so fidgety or restless that you have been moving around a lot more than usual: not at all 9. Thoughts that you would be better off or of hurting yourself in some way: not at all Total score: 0 Depression Screening Interpretation: Negative Depression Screening Done: Yes 00515 - PHQ-9 Billing: Yes Source: Developed by Drs. Jasiel Morris, Ghislaine Davison, Damion Mccarthy and colleagues, with an educational betty from [employer]. Thrive Questionnaire Date Thrive assessed: 12/21/24 I am a: Patient What is your living situation today?: I choose not to answer this question Within the past 12 months, did the food you bought not last and you didn't have the money to get more?: I choose not to answer this question Within the past 12 months, did you worry whether your food would run out before you got money to buy more?: I choose not to answer this question Do you have trouble paying for medicines?: I choose not to answer this question Do you have trouble getting transportation to medical appointments?: I choose not to answer this question Do you have trouble paying your heating and electricity bill?: I choose not to answer this question Do you have trouble taking care of your child, family member or friend?: I choose not to answer this question Do you have trouble with day-to-day activities such as bathing, preparing meals, shopping, managing finances, etc.?: I choose not to answer this question Are you currently unemployed and looking for a job?: I choose not to answer this question Are you interested in more education?: I choose not to answer this question THRIVE Score: 0 AUDIT C Alcohol Use Questionnaire (AUDIT-C) 1. How often do you have a drink containing alcohol?: Never 3. How often do you have six or more drinks on one occasion?: Never Total Score: 0 KRISTOPHER-7 AMB Questionnaire KRISTOPHER-7 Date KRISTOPHER - 7 assessed: 12/21/24 Feeling nervous, anxious, or on edge: 0 = Not at all Not being able to stop or control worryin = Not at all Worrying too much about different things: 0 = Not at all Trouble relaxin = Not at all Being so restless that it is hard to sit still: 0 = Not at all Becoming easily annoyed or irritable: 0 = Not at all Feeling afraid as if something awful might happen: 0 = Not at all Total KRISTOPHER-7 score (0-4 normal; 5-9 mild; 10-14 moderate; 15-21 severe): 0 Source: Developed by Drs. Jasiel Morris, Ghislaine Davison, Damion Mccarthy and colleagues, with an educational betty from [employer]. KRISTOPHER-7 Assessment Billing KRISTOPHER-7 Assessment Tool: KRISTOPHER-7 Assessment 34254 Review of Systems Const All systems reviewed & are unremarkable except as noted in HPI and below Reports no additional complaints Eyes Reports no additional complaints ENT Reports no additional complaints Card Reports no additional complaints Resp Reports no additional complaints GI Reports no additional complaints Physical exam (Primary Care) Vital Signs: Last Vital Signs Temp 98.1 F 12/21/24 08:53 Pulse 98 12/21/24 08:53 Resp 20 12/21/24 08:53 BP 124/70 12/21/24 08:53 Pulse Ox 94 12/21/24 08:53 Oxygen Delivery Method Room Air 12/21/24 08:53 BMI result Body Mass Index 28.4 Tobacco/Smoking Status: Tobacco use Status Tobacco use date assessed 12/21/24 12/21/24 09:01 Patient Tobacco Use Status Current everyday Tobacco 12/21/24 09:01 Tobacco use type Cigarette 12/21/24 09:01 e-Cigarette/Vaping Use Never Used 12/21/24 09:01 PHQ-9: PHQ-9 Score PHQ-9: Total score 0 12/21/24 09:01 Depression Screening Interpretation: Negative Thrive Assessment: Date of Thrive Assessment Date Thrive assessed 12/21/24 12/21/24 09:01 Const General: no acute distress Neck Neck: Yes supple Resp Effort & Inspection: normal respiratory effort Auscultation: diminished lung sounds Cardio Rhythm: regular rhythm Heart sounds: S1 normal heart sound present and S2 normal heart sound present GI Inspection: Yes normal to inspection Extrem Other: The significantly decreased range of motion of the left shoulder, anteriolateral aspect tenderness, no joint swelling erythema or warmth Coding Level of Care Code Est Pt Level 3 (70843) Diagnoses Shoulder pain, left M25.512 Additional Codes KRISTOPHER-7 Assessment Billing - KRISTOPHER-7 Assessment Tool: KRISTOPHER-7 Assessment 67170 ([id number]) PHQ-9 - 12372 - PHQ-9 Billing: Yes ([id number]) Assessment & Plan Assessment & Plan (1) Shoulder pain, left: Code(s): M25.512 - Pain in left shoulder Category: Medical Plan: Prednisone taper as prescribed x-ray will be obtained patient will be referred to physical therapy for frozen shoulder Orders: Orders XR shoulder LT min 2V Today M25.512 - Pain in left shoulder PT Evaluation and Treatment Today M25.512 - Pain in left shoulder Medications: New prednisone 4 tabl qd for 3 days, then 3 tabl qd for 3 days, 2 tabl qd for 3 days, 1 tabl qd 30 tabs 0RF
== END 2024-12-21 09:44 | disposition home or self-care (01) ==
PROVIDERS: PCP Internal Medicine; Visit Provider Internal Medicine
DX: M25.512 Pain in left shoulder (principal)

== ENCOUNTER 2024-12-21 08:47 | Outpatient (REF) | payer MEDICARE, SELFPAY ==
--- NOTE | ~2024-12-21 | XR_ITS ---
CLINICAL HISTORY: M25.512 - Pain in left shoulder 4 views left shoulder Comparison: None Findings: There is no fracture or dislocation. There is mild acromioclavicular joint osteoarthritis. Glenohumeral joint space is within normal limits. There is a punctate calcification or heterotopic ossification adjacent to the greater tuberosity of the humerus. Impression: No acute findings. This document has been electronically signed by: García Skinner MD on 12/22/2024 03:45:36
--- OUTSIDE RECORDS SUMMARY | 2024-12-21 10:44 | XMS_ITS | Clinical Summary ---
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 Role Phone Unavailable Primary Care Provider Unavailabl e Social History Tobacco Use Types Packs/Day Years Used Date Smoking Tobacco: Never Assessed Sex and Gender Information Value Date Recorded Sex Assigned at Not on file Legal Sex Male 6:10 PM EST Gender Identity Not on file Sexual Orientation Not on file Plan of Treatment Health Maintenance Due Date Last Done Comments DTaP,Tdap,and Td Vaccines (1 - Tdap) 1962 Pneumococcal Vaccine: 50+ Ye ars (1 of 1 - PCV) 2006 Zoster Vaccines (1 of 2) 2006 COVID-19 Vaccine (1 - 2023-2 5 season) 2024 Influenza Vaccine (#1) 2024 RSV Immunization Patients 60 + Years Old (1 - 1-dose 75+ series) 2031 HIB Vaccines Aged Out No longer eligi ble based on patient's age to complete this topic HPV Vaccines Aged Out No longer eligi ble based on patient's age to complete this topic Hepatitis A Vaccines Aged Out No long er eligible based on patient's age to complete this topic Hepatitis B Vaccines Aged Out No long er eligible based on patient's age to complete this topic IPV Vaccines Aged Out No longer eligi ble based on patient's age to complete this topic MMR Vaccines Aged Out No longer eligi ble based on patient's age to complete this topic Meningococcal ACWY Vaccine Aged Out N o longer eligible based on patient's age to complete this topic Meningococcal B Vacine Aged Out No lo nger eligible based on patient's age to complete this topic RSV Immunization Patients Un franco 20 months Aged Out No longer eligible b ased on patient's age to complete this topic Varicella Vaccines Aged Out No longer eligible based on patient's age to complete this topic
== END 2024-12-21 08:48 | disposition home or self-care (01) ==
LOC: HO.HMGCX 08:47
PROVIDERS: PCP Internal Medicine; Visit Provider Internal Medicine
DX: M25.512 Pain in left shoulder (principal)
CPT/HCPCS: 73030; 96127; 99212

== ENCOUNTER → 2024-12-21 09:48 | Outpatient (BNV) | payer MEDICARE, SELFPAY | PROVIDERS: PCP Internal Medicine; Visit Provider Radiology Diagnostic Radiology | DX: M25.512 Pain in left shoulder (principal) | CPT/HCPCS: 73030 ==

== ENCOUNTER 2025-01-11 13:12 | Outpatient (AMB) | payer MEDICARE, SELFPAY ==
[2025-01-11 13:14] VITALS: BP 126/70; PULSE 76; RESP 20; O2SAT 95; BMI 27.4
--- NOTE | 2025-01-11 13:14 | A.OFFPC_ITS ---
Vital Signs 01/11/25 13:14 Height 5 ft 8 in Weight 180 lb BMI 27.4 BP 126/70 Blood Pressure Location Rt brachial Position Sitting Respiration 20 Pulse 76 Pulse Source Pulse Oximeter Pulse Oximetry (%) 95 Oxygen Delivery Method Room Air Intake Visit Reasons: Hospital follow up Intake Note: Pt is here today for a Hospital follow up visit. Allergies Penicillins Adverse Reaction (Verified 01/11/25 13:18) Shortness of Breath Medication List - Last Reconciled 01/11/25 by Alla Oro MD acetaminophen ER (Tylenol 8 Hour) 650 mg PO Q12H cyanocobalamin (vitamin B-12) 1,000 mcg PO DAILY Tobacco use date assessed: 12/21/24 Dental Screening Dental Screen Date: 12/21/24 HPI Hospital follow up HPI Details PATIENT PRESENTS FOR THE FOLLOW-UP OF HOSPITALIZATION FOR ACUTE PNEUMONIA. Patient was discharged hormone Levaquin and prednisone taper for 5 days and completed the medications. He is feeling better. Patient is still smokes a pack a day and tried to quit using nicotine patch and gum unsuccessfully. He is willing to try Chantix. [facility] Medical History Vitamin B 12 deficiency Macrocytic anemia COPD (chronic obstructive pulmonary disease) Hyperlipidemia Bilateral carotid bruits Tobacco dependence Lung nodule Trigger finger Annual physical exam HTN (hypertension) Surgical History No pertinent past surgical history Family History Father No problems noted. 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 Housing: Apartment Patient Tobacco Use Status: Current everyday Tobacco user Tobacco use type: Cigarette Cigarettes Per Day: 15 e-Cigarette/Vaping Use: Never Used service: No Current occupational status: employed Cognitive needs: No Hearing needs: No Vision needs: No Questionnaire Thrive Questionnaire Date Thrive assessed: 12/21/24 I am a: Patient What is your living situation today?: I choose not to answer this question Within the past 12 months, did the food you bought not last and you didn't have the money to get more?: I choose not to answer this question Within the past 12 months, did you worry whether your food would run out before you got money to buy more?: I choose not to answer this question Do you have trouble paying for medicines?: No Do you have trouble getting transportation to medical appointments?: No Do you have trouble paying your heating and electricity bill?: No Do you have trouble taking care of your child, family member or friend?: No Do you have trouble with day-to-day activities such as bathing, preparing meals, shopping, managing finances, etc.?: I choose not to answer this question Are you currently unemployed and looking for a job?: I choose not to answer this question Are you interested in more education?: I choose not to answer this question Please select the resources that you would like help with: None Currently or been in a relationship where the following occur: I choose not to answer THRIVE Score: 0 AUDIT C Alcohol Use Questionnaire (AUDIT-C) 1. How often do you have a drink containing alcohol?: Never Total Score: 0 KRISTOPHER-7 AMB Questionnaire KRISTOPHER-7 Date KRISTOPHER - 7 assessed: 12/21/24 Feeling nervous, anxious, or on edge: 3 = Nearly every day Not being able to stop or control worryin = Not at all Worrying too much about different things: 0 = Not at all Source: Developed by Drs. Jasiel Morris, Ghislaine Davison, Damion Mccarthy and colleagues, with an educational betty from [employer]. Review of Systems Const All systems reviewed & are unremarkable except as noted in HPI and below Eyes Reports no additional complaints ENT Reports no additional complaints Card Reports no additional complaints Resp Reports no additional complaints GI Reports no additional complaints Reports no additional complaints Physical exam (Primary Care) Vital Signs: Last Vital Signs Pulse 76 01/11/25 13:14 Resp 20 01/11/25 13:14 BP 126/70 01/11/25 13:14 Pulse Ox 95 01/11/25 13:14 Oxygen Delivery Method Room Air 01/11/25 13:14 BMI result Body Mass Index 27.4 Tobacco/Smoking Status: Tobacco use Status Tobacco use date assessed 12/21/24 01/11/25 13:16 Patient Tobacco Use Status Current everyday Tobacco 01/11/25 13:16 Tobacco use type Cigarette 01/11/25 13:16 e-Cigarette/Vaping Use Never Used 01/11/25 13:16 Thrive Assessment: Date of Thrive Assessment Date Thrive assessed 12/21/24 01/11/25 13:16 Currently or been in a relationship where the following occur: I choose not to answer Const General: no acute distress HENMT Head: Yes normal to inspection Ears: hearing grossly normal bilaterally Resp Effort & Inspection: normal respiratory effort Auscultation: crackles (bases) and diminished lung sounds Cardio Rhythm: regular rhythm Heart sounds: S1 normal heart sound present and S2 normal heart sound present GI Inspection: Yes normal to inspection Coding Level of Care Code Est Pt Level 4 (52728) Diagnoses Shoulder pain, left M25.512 Abnormal CXR R93.89 COPD (chronic obstructive pulmonary disease) J44.9 PAD (peripheral artery disease) I73.9 Assessment & Plan Assessment & Plan (1) Shoulder pain, left: Code(s): M25.512 - Pain in left shoulder Category: Medical Plan: Of a chronic left shoulder pain patient will have physical therapy (2) Abnormal CXR: Comment: L midlung focal opacity on CXR 12/31/24 Code(s): R93.89 - Abnormal findings on diagnostic imaging of other specified body structures Category: Medical Plan: Repeat chest x-ray in 6 weeks (3) COPD (chronic obstructive pulmonary disease): Comment: Patient refused to use Trelegy Code(s): J44.9 - Chronic obstructive pulmonary disease, unspecified Category: Medical Plan: Tobacco quitting discussed with the patient. He will try Chantix (4) PAD (peripheral artery disease): Comment: 11/07/2021- diagnostic angiogram, LLE severe stenosis on doppler Code(s): I73.9 - Peripheral vascular disease, unspecified Category: Medical Plan: Patient refused to take statin Orders: Orders PT Evaluation and Treatment Today M25.512 - Pain in left shoulder XR chest 1V 6 Weeks R93.89 - Abnormal findings on diagnostic imaging of other specified body structures Medications: New varenicline tartrate (Chantix Starting Month Box) PO PER PKG DIR 53 ea 0RF varenicline tartrate (Chantix Continuing Month Box) 1 mg PO BID 56 tabs 1RF
--- OUTSIDE RECORDS SUMMARY | 2025-01-11 16:30 | XMS_ITS | Clinical Summary ---
Author Organization [facility] ity Address [address] [place] [address] Care Team Providers Care Mc Kay Machine Operator Name Role Phone Unavailable Primary Care [...] Comments DTaP,Tdap,and Td Vaccines (1 - Tdap) 1975 Pneumococcal Vaccine: 50+ Ye ars (1 of [...]
== END 2025-01-11 13:59 | disposition home or self-care (01) ==
PROVIDERS: PCP Internal Medicine; Visit Provider Internal Medicine
DX: M25.512 Pain in left shoulder (principal); R93.89 Abnormal findings on diagnostic imaging of other specified body structures; J44.9 Chronic obstructive pulmonary disease, unspecified; I73.9 Peripheral vascular disease, unspecified

== ENCOUNTER → 2025-01-11 13:12 | Outpatient (BNVA) | payer MEDICARE, SELFPAY | PROVIDERS: PCP Internal Medicine; Visit Provider Internal Medicine | DX: M25.512 Pain in left shoulder (principal); R93.89 Abnormal findings on diagnostic imaging of other specified body structures; J44.9 Chronic obstructive pulmonary disease, unspecified; I73.9 Peripheral vascular disease, unspecified | CPT/HCPCS: 99212 ==

== ENCOUNTER 2025-03-01 13:00 | Outpatient (RCR) | payer MEDICARE, SELFPAY ==
--- NOTE | 2025-04-05 12:27 | MHC.PT.DC ---
[facility] [place] Office [place] Office [place] Office [address] Humphrey Hsieh [address] [phone] F: [phone] F: [phone] F: [phone] F: [phone] Physical Therapy Discharge Report Diagnosis: This is a 69 yo male presenting to skilled PT with a script for L shoulder pain. Date of Surgery: Date of Evaluation: 01/24/25 Date of Discharge: 04/05/25 Treatments to Date: 6 Cancellations to Date: 0 No Shows to Date: 0 Discharge Status: Patient Elected to Stop Recommend MD Follow-up Discharge Summary: 03/01: Patient has come to 6 PT sessions without much improvement in symptoms. He states that his pain feels deeper inside vs in muscles. At this time I am referring him back to MD for reassessment and ? imaging. He demos 100 flexion, 50 abduction, 10 ER, 50 IR. MMT flexion 3+, abduction 3-, ER 3-. IR 4. Encouraged to continue up with HEP. DC to HEP. Electronically signed by: Carmina Das PT Please sign and return to therapist. Thank you for your referral.
== END 2025-04-05 12:27 | disposition home or self-care (01) ==
LOC: HO.PTCHIC 13:00
PROVIDERS: PCP Internal Medicine; Visit Provider Internal Medicine
DX: M25.512 Pain in left shoulder (principal)
CPT/HCPCS: 97110; 97162

== ENCOUNTER 2025-03-11 08:41 | Outpatient (AMB) | payer MEDICARE, SELFPAY ==
[2025-03-11 08:43] VITALS: BP 124/82; PULSE 83; RESP 20; O2SAT 95; BMI 28.9
--- NOTE | 2025-03-11 08:43 | MHC.PC.OV ---
Vital Signs 03/11/25 08:43 Height 5 ft 8 in Weight 190 lb BMI 28.9 BP 124/82 Blood Pressure Location Rt brachial Position Sitting Respiration 20 Pulse 83 Pulse Source Pulse Oximeter Pulse Oximetry (%) 95 Oxygen Delivery Method Room Air Intake Visit Reasons: EP-lt shoulder pain Intake Note: Pt is here today for a sick visit. Pt c/o L shoulder pain for 2 months now. Pt states that he had PT for the shoulder pain but nothing is helping. Allergies Penicillins Adverse Reaction (Verified 03/11/25 08:44) Shortness of Breath Medication List - Last Reconciled 03/11/25 by Alla Oro MD acetaminophen ER (Tylenol 8 Hour) 650 mg PO Q12H cyanocobalamin (vitamin B-12) 1,000 mcg PO DAILY varenicline tartrate (Chantix Starting Month Box) PO PER PKG DIR varenicline tartrate (Chantix Continuing Month Box) 1 mg PO BID Tobacco use date assessed: 03/11/25 Dental Screening Dental Screen Date: 12/21/24 HPI EP-lt shoulder pain HPI Details Patient presents complaining of worsening left shoulder pain mainly when sleeping on the left side but also when trying to lift or reach overhead getting worse for the last few weeks. Patient tried physical therapy without significant relief. Patient denies any weakness or numbness in the left upper extremity. [facility] Medical History Vitamin B 12 deficiency Macrocytic anemia COPD (chronic obstructive pulmonary disease) Hyperlipidemia Bilateral carotid bruits Tobacco dependence Lung nodule Trigger finger Annual physical exam HTN (hypertension) Surgical History No pertinent past surgical history Family History Father No problems noted. 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 Jasiel Morris, Ghislaine Davison, Damion Mccarthy and colleagues, with an educational betty from [employer]. Review of Systems Const All systems reviewed & are unremarkable except as noted in HPI and below Eyes Reports no additional complaints ENT Reports no additional complaints Card Reports no additional complaints Resp Reports no additional complaints GI Reports no additional complaints Physical exam (Primary Care) Vital Signs: Last Vital Signs Pulse 83 03/11/25 08:43 Resp 20 03/11/25 08:43 BP 124/82 03/11/25 08:43 Pulse Ox 95 03/11/25 08:43 Oxygen Delivery Method Room Air 03/11/25 08:43 BMI result Body Mass Index 28.9 Tobacco/Smoking Status: Tobacco use Status Tobacco use date assessed 03/11/25 03/11/25 08:50 Patient Tobacco Use Status Current everyday Tobacco 03/11/25 08:50 Tobacco use type Cigarette 03/11/25 08:50 e-Cigarette/Vaping Use Never Used 03/11/25 08:50 Thrive Assessment: Date of Thrive Assessment Date Thrive assessed 12/21/24 03/11/25 08:50 Const General: no acute distress HENMT Head: Yes normal to inspection Face and sinus: Yes normal facial exam Neck Neck: Yes no lymphadenopathy and Yes supple Resp Effort & Inspection: normal respiratory effort Auscultation: rhonchi, wheezes and diminished lung sounds Cardio Rhythm: regular rhythm Heart sounds: S1 normal heart sound present and S2 normal heart sound present Extrem Other: There is significantly decreased range of motion in the left shoulder anterior lateral aspect tenderness no joint deformity Coding Level of Care Code Est Pt Level 4 (22465) Diagnoses Shoulder pain, left M25.512 Abnormal CXR R93.89 COPD (chronic obstructive pulmonary disease) J44.9 Assessment & Plan Assessment & Plan (1) Shoulder pain, left: Comment: XR shoulder mild OA, 12/2024 Code(s): M25.512 - Pain in left shoulder Category: Medical Plan: Meloxicam is prescribed and patient will continue physical therapy (2) Abnormal CXR: Comment: L midlung focal opacity on CXR 12/31/24 Code(s): R93.89 - Abnormal findings on diagnostic imaging of other specified body structures Category: Medical Plan: Obtain follow-up chest x-ray after treatment for pneumonia a month ago (3) COPD (chronic obstructive pulmonary disease): Comment: Patient refused to use Trelegy Code(s): J44.9 - Chronic obstructive pulmonary disease, unspecified Category: Medical Plan: Tobacco quitting discussed with the patient try Anoro inhaler Medications: New Anoro Ellipta 62.5-25 mcg/actuation (umeclidinium-vilanterol) 1 inh inhalation DAILY 60 ea 1RF NS meloxicam 15 mg PO DAILY 14 tabs 0RF
--- OUTSIDE RECORDS SUMMARY | 2025-03-11 09:06 | XMS_ITS | Clinical Summary ---
[facility] [address] [place] [address] Care Team Providers Care Broth Mixer Name Role Phone Unavailable Primary Care Provider [...] Vaccines (1 of 2) 2006 COVID-19 Vaccine ( - 2023-2 5 season) 2024 Influenza Vaccine (Season Ended) 2025 RSV Immunization Adult Patie nts (1 - 1-dose 75+ series) 2031 HIB [...] age to complete this topic Meningococcal B Vaccine Aged Out No l onger eligible based on patient's age to complete this topic RSV Immunization Patients Un franco 20 months Aged Out No longer eligible b ased on patient's age to complete this topic Varicella Vaccines Aged Out No longer eligible based on patient's age to complete this topic
== END 2025-03-11 16:22 | disposition home or self-care (01) ==
PROVIDERS: PCP Internal Medicine; Visit Provider Internal Medicine
DX: M25.512 Pain in left shoulder (principal); R93.89 Abnormal findings on diagnostic imaging of other specified body structures; J44.9 Chronic obstructive pulmonary disease, unspecified

== ENCOUNTER 2025-03-11 08:41 | Outpatient (REF) | payer MEDICARE, SELFPAY ==
--- NOTE | ~2025-03-11 | XR_ITS ---
EXAMINATION: XR CHEST 2 VIEWS HISTORY: R93.89 - Abnormal findings on diagnostic imaging of other specified body... COMPARISON: Comparison is made with the prior examination dated 09/24/2021. FINDINGS: PA and lateral views of the chest are submitted. The lungs are hyperinflated, consistent with COPD. There is mild increased interstitial markings bilaterally. There is a 3.7 cm mass in the left upper lobe. There is no pleural effusion, pneumothorax, or pulmonary vascular congestion. The heart is normal in size. There is degenerative disc disease of the spine. XR/XR chest 2V IMPRESSION: 3.7 cm left upper lobe mass, compatible with neoplasm. Further evaluation with chest CT with contrast is recommended. Electronically signed by: Jasiel Reynoso MD 03/11/2025 11:47 AM EDT
--- OUTSIDE RECORDS SUMMARY | 2025-03-11 10:15 | XMS_ITS | Clinical Summary ---
[facility] [address] [place] [address] Care Team Providers Care Volumetric Weigher Name Role Phone Unavailable Primary Care Provider [...]
== END 2025-03-11 08:42 | disposition home or self-care (01) ==
LOC: HO.HMGCX 08:41
PROVIDERS: PCP Internal Medicine; Visit Provider Internal Medicine
DX: M25.512 Pain in left shoulder (principal); R93.89 Abnormal findings on diagnostic imaging of other specified body structures; J44.9 Chronic obstructive pulmonary disease, unspecified
CPT/HCPCS: 71046; 99212

== ENCOUNTER → 2025-03-11 09:31 | Outpatient (BNV) | payer MEDICARE, SELFPAY | PROVIDERS: PCP Internal Medicine; Visit Provider Radiology Diagnostic Radiology | DX: R93.89 Abnormal findings on diagnostic imaging of other specified body structures (principal) | CPT/HCPCS: 71046 ==

== ENCOUNTER 2025-03-23 14:49 | Outpatient (REF) | payer MEDICARE, SELFPAY ==
--- NOTE | ~2025-03-23 | CT_ITS ---
EXAMINATION: CT CHEST WITH CONTRAST CLINICAL INFORMATION: 3.7 cm mass in the left upper lobe on chest x-ray 03/11/2025 COMPARISON: None available. TECHNIQUE: Multidetector volumetric CT imaging of the chest was obtained after the administration of 50 mL of Omnipaque 350 intravenous contrast without immediate adverse reactions. Axial MIP volume rendering provided. Sagittal and coronal reformatted images were obtained. This CT examination was performed using dose optimization techniques as appropriate, variously including the following: *Automated exposure control *Adjustment of mA and/or kV according to patient size (this includes techniques or standardized protocols for targeted exams where dose is matched to indication/reason for exam; i.e. extremities or head) *Use of iterative reconstruction technique DLP 247 mGy/cm. FINDINGS: BUSINESS PROJECT ANALYST: Well-expanded lungs with a soft tissue density/mass left upper lobe. LUNGS: Mild centrilobular emphysema without acute consolidation. There is no left upper lobe pleural-based mass measuring 3.8 x 2.3 x 2.4 cm. There is a second mass in the left anterior parahilar region measuring 2.4 x 1.6 cm on axial image 68/6 and several additional nodules in the vicinity measuring 9 mm on axial image 73/6 and 7 mm nodule axial image 75/6. There are likely micronodules as well with mild reticular stranding. MEDIASTINUM: Thyroid lobes are symmetrical and normal. The central trachea and the bronchi are widely patent. Heart size and the great vessels are normal caliber. There are numerous abnormal size left para-aortic right paratracheal and subcarinal lymph nodes. PLEURA: There is no pleural effusion or calcified pleural plaques. No pneumothorax. AXILLA: There are small shotty bilateral axillary lymph nodes the largest suspicious right axillary lymph node is 1.1 cm on axial image 26/3. UPPER ABDOMEN: The liver is diffusely attenuated. No focal lesion or intrahepatic duct dilatation seen. Visualized spleen, pancreas are unremarkable. Left adrenal gland is plump. Mild circumferential thrombus in the proximal abdominal aorta. OSSEOUS STRUCTURES: No aggressive lytic or sclerotic process seen CT/CT chest w IV con IMPRESSION: Large left upper lobe mass use since the last exam 09/17/2021. There are multiple satellite nodules in the vicinity and a larger left suprahilar mass or density likely direct extension. Recommend CT guided lung biopsy. Abnormal mediastinal adenopathy. No visible lytic or sclerotic bony changes to suspect metastatic bone disease. Patient however has moderate spondylosis throughout lower dorsal spine. Fleischner guidelines were followed. Electronically signed by: Thad Morley MD 03/23/2025 03:50 PM EDT
--- OUTSIDE RECORDS SUMMARY | 2025-03-23 14:53 | XMS_ITS | Clinical Summary ---
Author Organization [facility] ity Address [address] [place] [address] Care Team Providers Care General Manager Food Name Role Phone Unavailable Primary Care Provider [...]
[2025-03-23] MEDS: iohexoL 350 MG/ML 100 ML INFUS..BTL IV (15:32)
[2025-03-24 10:01] LABS: Creatinine POC 1.2 mg/dL (0.5-1.4); GFR POC > 60
== END 2025-03-23 14:50 | disposition home or self-care (01) ==
LOC: HO.CT 14:49
PROVIDERS: PCP Internal Medicine; Visit Provider Internal Medicine
DX: R91.8 Other nonspecific abnormal finding of lung field (principal)
CPT/HCPCS: 71260; 82565; Q9967

== ENCOUNTER → 2025-03-23 14:51 | Outpatient (BNV) | payer MEDICARE, SELFPAY | PROVIDERS: PCP Internal Medicine; Visit Provider Radiology Diagnostic Radiology | DX: R91.8 Other nonspecific abnormal finding of lung field (principal) | CPT/HCPCS: 71260 ==

== ENCOUNTER 2025-09-08 10:06 | Outpatient (AMB) | payer MEDICARE, SELFPAY ==
[2025-09-08 10:30] VITALS: BP 120/70; RESP 17; TEMP 36.3; BMI 30.3
--- NOTE | 2025-09-08 10:30 | A.OFFPC_ITS ---
Vital Signs 09/08/25 10:30 Height 5 ft 8 in Weight 199 lb BMI 30.3 BP 120/70 Blood Pressure Location Rt brachial Position Sitting Respiration 17 Temp 97.4 F Temp Source Oral Intake Visit Reasons: PE - see comments Intake Note: Pt is here today for his PE Allergies Penicillins Adverse Reaction (Verified 09/08/25 10:31) Shortness of Breath Medication List - Last Reconciled 09/08/25 by Alla Oro MD acetaminophen ER (Tylenol 8 Hour) 650 mg PO Q12H Anoro Ellipta 62.5-25 mcg/actuation (umeclidinium-vilanterol) 1 ea PO DAILY NS cyanocobalamin (vitamin B-12) 1,000 mcg PO DAILY meloxicam 15 mg PO DAILY varenicline tartrate (Chantix Starting Month Box) PO PER PKG DIR varenicline tartrate (Chantix Continuing Month Box) 1 mg PO BID Tobacco use date assessed: 09/08/25 Fall risk assessment: No Falls in past year Last assessed Fall Risk: 09/08/25 Dental Screening Dental Screen Date: 12/21/24 HPI PE - see comments HPI Details Pt presents for PE. He has been undergoing chemotherapy for a newly diagnosed small cell lung CA at [facility]. Patient has been tolerating treatment well but complains of bilateral lower extremity pain worse when walking a short distance. Arterial Doppler was consistent with severe arterial peripheral vascular disease and patient has an appointment with a vascular surgeon. Patient reports episodes of cough with clear sputum and chest congestion but no hemoptysis for many months. Patient has been using Anoro but not regularly. He continues to smoke a pack a day and has been trying to quit. [facility] Medical History (Updated 09/08/25 @ 11:58 by Alla Oro MD) Colonoscopy refused PAD (peripheral artery disease) Small cell lung cancer Vitamin B 12 deficiency Macrocytic anemia COPD (chronic obstructive pulmonary disease) Hyperlipidemia Bilateral carotid bruits Tobacco dependence Lung nodule Trigger finger Annual physical exam HTN (hypertension) Surgical History No pertinent past surgical history Family History Father No problems noted. 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 1. Little interest or pleasure in doing things: not at all 2. Feeling down, depressed, or hopeless: several days 3. Trouble falling or staying asleep, or sleeping too much: not at all 4. Feeling tired or having little energy: not at all 5. Poor appetite or overeating: not at all 6. Feeling bad about yourself - or that you are a failure or have let yourself or your family down: not at all 7. Trouble concentrating on things, such as reading the newspaper or watching television: not at all 8. Moving or speaking so slowly that other people could have noticed. Or the opposite - being so fidgety or restless that you have been moving around a lot more than usual: not at all 9. Thoughts that you would be better off or of hurting yourself in some way: not at all Total score: 1 Depression Screening Interpretation: Negative Depression Screening Done: Yes Source: Developed by Drs. Jasiel Morris, Ghislaine Davison, Damion Mccarthy and colleagues, with an educational betty from [employer]. Thrive Questionnaire Date Thrive assessed: 01/11/25 I am a: Patient What is your living situation today?: I choose not to answer this question Within the past 12 months, did the food you bought not last and you didn't have the money to get more?: I choose not to answer this question Within the past 12 months, did you worry whether your food would run out before you got money to buy more?: I choose not to answer this question Do you have trouble paying for medicines?: No Do you have trouble getting transportation to medical appointments?: No Do you have trouble paying your heating and electricity bill?: No Do you have trouble taking care of your child, family member or friend?: No Do you have trouble with day-to-day activities such as bathing, preparing meals, shopping, managing finances, etc.?: I choose not to answer this question Are you currently unemployed and looking for a job?: I choose not to answer this question Are you interested in more education?: I choose not to answer this question Please select the resources that you would like help with: None Currently or been in a relationship where the following occur: I choose not to answer THRIVE Score: 0 AUDIT C Alcohol Use Questionnaire (AUDIT-C) 2. How many drinks containing alcohol do you have on a typical day when you are drinking?: 1 or 2 3. How often do you have six or more drinks on one occasion?: Never Total Score: 0 KRISTOPHER-7 AMB Questionnaire KRISTOPHER-7 Date KRISTOPHER - 7 assessed: 12/21/24 Trouble relaxin = Not at all Being so restless that it is hard to sit still: 0 = Not at all Becoming easily annoyed or irritable: 0 = Not at all Feeling afraid as if something awful might happen: 0 = Not at all Source: Developed by Drs. Jasiel Morris, Ghislaine Davison, Damion Mccarthy and colleagues, with an educational betty from [employer]. Review of Systems Const All systems reviewed & are unremarkable except as noted in HPI and below Eyes Reports no additional complaints ENT Reports no additional complaints Card Reports no additional complaints Resp Reports no additional complaints GI Reports no additional complaints Reports no additional complaints Physical exam (Primary Care) Vital Signs: Last Vital Signs Temp 97.4 F 09/08/25 10:30 Resp 17 09/08/25 10:30 BP 120/70 09/08/25 10:30 BMI result Body Mass Index 30.3 Tobacco/Smoking Status: Tobacco use Status Tobacco use date assessed 09/08/25 09/08/25 10:33 Patient Tobacco Use Status Current everyday Tobacco 09/08/25 10:33 Tobacco use type Cigarette 09/08/25 10:33 e-Cigarette/Vaping Use Never Used 09/08/25 10:33 PHQ-9: PHQ-9 Score PHQ-9: Total score 1 09/08/25 10:33 Depression Screening Interpretation: Negative Thrive Assessment: Date of Thrive Assessment Date Thrive assessed 01/11/25 09/08/25 10:33 Currently or been in a relationship where the following occur: I choose not to answer Const General: no acute distress HENMT Head: Yes normal to inspection Face and sinus: Yes normal facial exam Throat: Yes posterior oropharynx normal Eyes General: appearance normal, both eyes and all related structures Neck Neck: Yes no lymphadenopathy and Yes supple Resp Effort & Inspection: normal respiratory effort Auscultation: rhonchi, wheezes and diminished lung sounds Cardio Rhythm: regular rhythm Heart sounds: S1 normal heart sound present and S2 normal heart sound present GI Inspection: Yes normal to inspection Palpation (GI): Soft to palpation Percussion: Yes normal to percussion Auscultation: normal bowel sounds Extrem General: Yes no clubbing, cyanosis or edema Coding Level of Care Code Est Pt Prev Care >65y(29330) Diagnoses PAD (peripheral artery disease) I73.9 Hyperlipidemia E78.5 Small cell lung cancer C34.90 COPD (chronic obstructive pulmonary disease) J44.9 ALEXANDER (dyspnea on exertion) R06.09 Assessment & Plan Assessment & Plan (1) PAD (peripheral artery disease): Comment: 11/07/2021- diagnostic angiogram, LLE severe stenosis on doppler Code(s): I73.9 - Peripheral vascular disease, unspecified Category: Medical Plan: Follow-up with the vascular surgeon (2) Hyperlipidemia: Comment: STOPPED ATORVASTATIN BECAUSE OF DIARRHEA, patient declined treatment Code(s): E78.5 - Hyperlipidemia, unspecified Category: Medical Plan: Intolerant to statins (3) Small cell lung cancer: Comment: dxd 04/2025, txd Ketty chemo therapy and will have consolidation RTx Code(s): C34.90 - Malignant neoplasm of unspecified part of unspecified bronchus or lung Category: Medical Plan: Follow-up with oncology and radiation oncology (4) COPD (chronic obstructive pulmonary disease): Comment: Patient refused to use Trelegy Code(s): J44.9 - Chronic obstructive pulmonary disease, unspecified Category: Medical Plan: Restart Anoro follow-up in 1 month, tobacco quitting discussed with the patient (5) ALEXANDER (dyspnea on exertion): Code(s): R06.09 - Other forms of dyspnea Category: Medical Plan: Dyspnea on exertion obtain echocardiogram to evaluate for cardiomyopathy
--- OUTSIDE RECORDS SUMMARY | 2025-09-08 12:09 | XMS_ITS | Clinical Summary ---
Author Organization [facility] [address] [facility] Address [address] [place] [address] Phone Care Team Providers Care Marketing Technologist Name Role Phone Alla Oro MD Primary Care Provider [phone] Allergies Active Allergy Reactions Criticality Noted Date Comments Penicillins Shortness of breath High 04/01/2025 Medications cyanocobalamin (Vitamin B-12) 1,000 mcg tablet Take 1 tablet (1,000 mcg total) by mouth. 5 Active Anoro Ellipta 62.5-25 mcg/actuation inhaler Inhale 1 puff by mouth 1 (one) time each day. 5 Active acetaminophen (TYLENOL 8 HOUR) 650 mg 8 hr tablet Take 1 tablet (650 mg total) by mouth every 8 (eight) hours if needed for mild pain. Do not crush, chew, or split. 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 20 tablet 11 5 026 Active diclofenac (VOLTAREN) 1 % topical gel Apply 4 g topically 2 (two) times a day. 100 g 1 5 Active atorvastatin (LIPITOR) 10 mg tablet Take 4 tablets (40 mg total) by mouth at bedtime. Active furosemide (LASIX) 20 mg tablet Take 1 tablet (20 mg total) by mouth 1 (one) time each day. 60 tablet 1 5 026 Active oxyCODONE-acetamin ophen (PERCOCET) 5-325 mg per tablet Take 1-2 tablets by mouth every 8 (eight) hours if needed for moderate pain or severe pain. Max Daily Amount: 6 tablets 60 tablet 5 025 doxycycline hyclate (VIBRA-TABS) 100 mg tablet Take 1 tablet (100 mg total) by mouth 2 (two) times a day for 10 days. Take with a full glass of water and do not lie down for at least 30 minutes after. 20 each 5 025 Active Problems Problem Noted Date Diagnosed Date Bilateral calf pain 07/12/2025 Drug-induced hypothyroidism 07/12/2025 Mediastinal lymphadenopathy 07/12/2025 Peripheral vascular disease (CMS/HCC V24) 2024 Small cell carcinoma of uppe r lobe of left lung (CMS/HCC V24, CMS/HCC V28) 05/04/2025 Cancer Staging:Clinical stage from 05/17/2025:Stage IIIC(cT3, cN3, cM0) - Signed by Chris Steward MD on 05/17/2025 Assessment & Plan (05/05/2025 12:34 PM EDT): Mr. Morel is a 69-year-old male who was noted to have 2 left upper lobe lung masses the largest of which measures 3.8 cm, as well as significant mediastinal lymphadenopathy on CT scan. Patient had a navigational bronchoscopy with biopsy of the left upper lobe mass, as well as EBUS with biopsy of multiple lymph node stations with Dr. Solorio on April 28, 2025. Biopsy of the left upper lobe mass positive for small cell carcinoma. The right paratracheal and subcarinal lymph node were negative for malignant cells. The left paratracheal lymph node showed rare atypical cells. Patient has already seen Dr. Taveras from medical oncology who has explained the patient's pathology and staging. At this point the patient has stage III small cell carcinoma with plans for concurrent chemoradiation. No indication for ongoing surgical management in the setting of his small cell carcinoma. The patient has recovered well from his biopsy without complication. The patient should follow with oncology for ongoing management and can be sent back to us should our services be needed in the future. 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 (CMS/HCC V24, CMS/HCC V28); Drug therapy Discharge Disposition: Home or Self Care 08/23/2025 10:30 AM EDT Office Visit [facility] Hematology Oncology [address] [place] [phone] Gina-Iy Aiden hernandez MD 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 (CMS/HCC V24, CMS/HCC V28) (Primary Dx); Bilateral calf pain; Peripheral vascular disease (CMS/HCC V24); Drug-induced hypothyroidism 08/23/2025 9:01 AM EDT - 08/23/2025 11:59 PM EDT Hospital Encounter [facility] Radiation Oncology [address] [place] [phone] Chris Steward MD 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 (CMS/HCC V24, CMS/HCC V28) (Primary Dx) Discharge Disposition: Home or Self Care 08/23/2025 8:58 AM EDT - 08/23/2025 11:59 PM EDT Hospital Encounter [facility] Radiation Oncology [address] [place] [phone] Discharge Disposition: Home or Self Care 08/18/2025 Telephone [facility] Radiation Oncology [address] [place] [phone] Maddie Jenkins MA 08/08/2025 Social Work [facility] [address] [place] [phone] [facility], [facility] 08/08/2025 Telephone [facility] Radiation Oncology [address] [place] [phone] Jenkins Maddie, [place] 08/02/2025 9:30 AM EDT - 08/02/2025 11:59 PM EDT Hospital Encounter [facility] [address] [place] [phone] Winifredramonia-Iy Aiden hernandez MD 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 (CMS/HCC V24, CMS/HCC V28) (Primary Dx); Drug-induced hypothyroidism Discharge Disposition: Home or Self Care 08/02/2025 9:15 AM EDT Office Visit [facility] Hematology Oncology [address] [place] [phone] Winifredramonia-Iy Aiden hernandez MD 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 (CMS/HCC V24, CMS/HCC V28) (Primary Dx); Drug-induced hypothyroidism; Peripheral vascular disease (CMS/HCC V24); Mediastinal lymphadenopathy; Other hypervolemia 08/02/2025 Social Work [facility] [address] [place] [phone] Claudia, [facility] 07/27/2025 9:21 AM EDT - 07/27/2025 11:59 PM EDT Hospital Encounter [facility] PET Scan [address] [place] [phone] 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 (CMS/HCC V24, CMS/HCC V28) Discharge Disposition: Home or Self Care 07/26/2025 12:35 PM EDT - 07/26/2025 11:59 PM EDT Hospital Encounter [facility] MRI [address] [place] [phone] 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 (CMS/HCC V24, CMS/HCC V28) Discharge Disposition: Home or Self Care 07/14/2025 8:15 AM EDT - 07/14/2025 11:59 PM EDT Hospital Encounter [facility] [address] [place] [phone] Winifredramonia-Iy Aiden hernandez MD 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 ([facility]/HCC V24, [facility]/HCC V28) (Primary Dx) Discharge Disposition: Home or Self Care 07/14/2025 Telephone [facility] Hematology Oncology [address] [place] [phone] Subramonia-Iy Aiden hernandez MD 07/13/2025 9:08 AM EDT - 07/13/2025 11:59 PM EDT Hospital Encounter [facility] [address] [place] [phone] Subramonia-Iy Aiden hernandez MD 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 ([facility] V24, [facility] V28) (Primary Dx) Discharge Disposition: Home or Self Care 07/12/2025 9:30 AM EDT - 07/12/2025 11:59 PM EDT Hospital Encounter [facility] [address] [place] [phone] Winifredramonia-Iy Aiden hernandez MD 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 ([facility]/HCC V24, [facility] V28) (Primary Dx) Discharge Disposition: Home or Self Care 07/12/2025 9:00 AM EDT Office Visit [facility] Hematology Oncology [address] [place] [phone] Subramonia-Iy erAiden MD 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 ([facility] V24, [facility]/HCC V28) (Primary Dx); Bilateral calf pain; Drug-induced hypothyroidism; Mediastinal lymphadenopathy; Peripheral vascular disease ([facility] V24) 06/22/2025 9:59 AM EDT - 06/22/2025 11:59 PM EDT Hospital Encounter [facility] [address] [place] [phone] Subramonia-Iy Aiden hernandez MD 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 ([facility] V24, [facility] V28) (Primary Dx) Discharge Disposition: Home or Self Care 06/21/2025 9:54 AM EDT - 06/21/2025 11:59 PM EDT Hospital Encounter [facility] [address] [place] [phone] Gina-Iy Aiden hernandez MD 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 ([facility] V24, [facility] V28) (Primary Dx) Discharge Disposition: Home or Self Care 06/20/2025 5:13 PM EDT - 06/20/2025 11:59 PM EDT Hospital Encounter [facility] Xray [address] [place] [phone] Discharge Disposition: Home or Self Care 06/20/2025 1:15 PM EDT Office Visit [facility] Hematology Oncology [address] [place] [phone] Gina-Iy erAiden MD 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 ([facility] V24, [facility] V28) (Primary Dx) Discharge Disposition: Home or Self Care from Last 3 Months Surgical History Surgery Date Site/Laterality Comments NO PAST SURGERIES OTHER SURGICAL HISTORY 04/28/2025 Left NavBronch EBUX with Bx MEHRDAD Medical History Medical History Date Comments COPD (chronic obstructive pu lmonary disease) ([facility] V24, [facility] V28) Hypertension Vitamin B12 deficiency Trigger finger Bilateral carotid bruits Lung nodule Shortness of breath when lying d own Small cell lung cancer ([facility] [place]24, [facility] V28 ) 04/28/2025 MEHRDAD Family History Medical History Relation Name Comments Hypertension Mother Relation Name Status Comments Father Mother Social History Tobacco Use Types Packs/Day Years Used Date Smoking Tobacco: Every Day Cigarettes 1 50.5 Started: 03/1975 Smokeless Tobacco: Never Comments:Full pack per day Interpersonal Safety Answer Date Record ed Physical Abuse Unrecognized value 04/28/2025 Verbal Abuse Unrecognized value 04/28/2025 Sex and Gender Information Value Date Recorded Sex Assigned at Male 05/09/2025 9:56 AM EDT Legal Sex Male 6:10 PM EST Gender Identity Male 05/09/2025 9:56 AM EDT Sexual Orientation Straight 05/09/2025 9: 56 AM EDT 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 Not on file Not on file Obstetrics History Last Filed Vital Signs Vital Sign Reading Time Taken Comments Blood Pressure 136/63 08/23/2025 10:40 AM EDT Pulse 86 08/23/2025 10:40 AM EDT Temperature 36.6 C (97.8 F) 08/23/2025 10:40 AM EDT Respiratory Rate 18 08/23/2025 9:04 AM EDT Oxygen Saturation 95% 08/23/2025 10:40 AM EDT Inhaled Oxygen Concentration - - Weight 89.8 kg (198 lb) 08/23/2025 10:40 AM EDT Height 175.3 cm (5' 9 ) 08/23/2025 10:40 AM EDT Body Mass Index 29.24 08/23/2025 10:40 AM EDT Plan of Treatment Upcoming Encounters Date Type Department Care Team (Late st Contact Info) Description 09/13/2025 11:00 AM EST Appointment [facility] [address] [facility] 2nd [place] [phone] Gina-Aiden Taveras MD [address] [place] [phone] 09/16/2025 3:30 PM EST Consult Vascular Surgery - [place] [address] [place] [address] Manuela Charles PA [address] [place] [phone] 10/04/2025 10:15 AM EST Office Visit [facility] Hematology Oncology [address] [place] [phone] Aiden Mcnally MD [address] [place] [phone] Health Maintenance Due Date Last Done Comments Colorectal Cancer Screening: Colonoscopy 1955 DTaP,Tdap,and Td Vaccines (1 - Tdap) 1975 Pneumococcal Vaccine: 50+ Years (1 of 2 - PCV) 1975 Zoster Vaccines (1 of 2) 1975 RSV Immunization Adult Patients (1 - Risk 50-74 years 1-dose series) 2006 Depression Screening 11/10/2024 Abdominal Aortic Aneurysm (AAA) Screen 03/29/2025 Cholesterol Screening (Lipid Panel) 03/29/2025 Hepatitis C Screening 03/29/2025 Lung Cancer Screening (Low Dose CT) 03/29/2025 Medicare Annual Wellness Visit 03/29/2025 Social Influencers of Health Screening 03/29/2025 COVID-19 Vaccine (4 - 2024-2 6 season) 2025 11/04/2021, 04/02/2021, 03/12/2021 Influenza Vaccine (#1) 2025 Falls Risk Assessment 08/23/2026 08/23/2025 HIB Vaccines Aged Out No longer eligi [...] to complete this topic RSV Immunization Patients Under 20 months Aged Out No longer eligible b ased on patient's age to complete this topic Varicella Vaccines Aged Out No longer eligible based on patient's age to complete this topic Medical Devices Implanted Type Area Skiver Heel Tap Device Identifier Shelf Expiration Date Model / Serial / Lot Port Pwr Isp Attach 6f Interm Colette - [id number] - [id number] Implanted:Qty: 1 on 05/19/2025 by Misael Wheeler MD at [facility]/Isabel pheral Catheters and Ports Right: Chest Wall CR [employer]ARD [employer] [id number] 09/09/2025 [id number] / [id number] / [id number] Procedures Procedure Name Priority Date/Time Associated Diagnosis Comments THYROID STIMULATING HORMONE STAT 08/23/2025 11:49 AM EDT 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 (CMS/HCC V24, CMS/HCC V28) Drug therapy CBC WITH AUTO DIFFERENTIAL Routine 08/22/2025 12:58 PM EDT 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 (CMS/HCC V24, CMS/HCC V28) Drug-induced hypothyroidism AMYLASE Routine 08/22/2025 12:58 PM EDT 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 (CMS/HCC V24, CMS/HCC V28) Drug-induced hypothyroidism LIPASE Routine 08/22/2025 12:58 PM EDT 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 (CMS/HCC V24, CMS/HCC V28) Drug-induced hypothyroidism COMPREHENSIVE METABOLIC PANEL Routine 08/22/2025 12:58 PM EDT 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 (CMS/HCC V24, CMS/HCC V28) Drug-induced hypothyroidism CBC AND DIFFERENTIAL Routine 08/22/2025 12:58 PM EDT 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 (CMS/HCC V24, CMS/HCC V28) Drug-induced hypothyroidism CBC WITH AUTO DIFFERENTIAL Routine 08/01/2025 12:03 PM EDT 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 (CMS/HCC V24, CMS/HCC V28) CBC AND DIFFERENTIAL Routine 08/01/2025 12:03 PM EDT 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 (CMS/HCC V24, CMS/HCC V28) COMPREHENSIVE METABOLIC PANEL Routine 08/01/2025 12:03 PM EDT 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 (CMS/HCC V24, CMS/HCC V28) MAGNESIUM Routine 08/01/2025 12:03 PM EDT 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 (CMS/HCC V24, CMS/HCC V28) LIPASE Routine 08/01/2025 12:03 PM EDT 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 (CMS/HCC V24, CMS/HCC V28) AMYLASE Routine 08/01/2025 12:03 PM EDT 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 (CMS/HCC V24, CMS/HCC V28) PET CT SKULL TO MID THIGH SUBSEQUENT Routine 07/27/2025 11:41 AM EDT 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 (CMS/HCC V24, CMS/HCC V28) MR BRAIN WO AND W CONTRAST Routine 07/26/2025 1:47 PM EDT 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 (CMS/HCC V24, CMS/HCC V28) MANUAL DIFFERENTIAL - SYSMEX WAM Routine 07/08/2025 1:13 PM EDT 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 (CMS/HCC V24, CMS/HCC V28) CBC WITH AUTO DIFFERENTIAL Routine 07/08/2025 1:13 PM EDT 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 (CMS/HCC V24, CMS/HCC V28) CBC AND DIFFERENTIAL Routine 07/08/2025 1:13 PM EDT 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 (CMS/HCC V24, CMS/HCC V28) COMPREHENSIVE METABOLIC PANEL Routine 07/08/2025 1:13 PM EDT 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 (CMS/HCC V24, CMS/HCC V28) MAGNESIUM Routine 07/08/2025 1:13 PM EDT 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 (CMS/HCC V24, CMS/HCC V28) LIPASE Routine 07/08/2025 1:13 PM EDT 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 (CMS/HCC V24, CMS/HCC V28) AMYLASE Routine 07/08/2025 1:13 PM EDT 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 (CMS/HCC V24, CMS/HCC V28) XR CHEST 1 VIEW STAT 06/20/2025 5:25 PM EDT 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 (CMS/HCC V24, CMS/HCC V28) CBC WITH AUTO DIFFERENTIAL Routine 06/17/2025 11:45 AM EDT 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 (CMS/HCC V24, CMS/HCC V28) CBC AND DIFFERENTIAL Routine 06/17/2025 11:45 AM EDT 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 (CMS/HCC V24, CMS/HCC V28) COMPREHENSIVE METABOLIC PANEL Routine 06/17/2025 11:45 AM EDT 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 (CMS/HCC V24, CMS/HCC V28) MAGNESIUM Routine 06/17/2025 11:45 AM EDT 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 (CMS/HCC V24, CMS/HCC V28) LIPASE Routine 06/17/2025 11:45 AM EDT 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 (CMS/HCC V24, CMS/HCC V28) AMYLASE Routine 06/17/2025 11:45 AM EDT 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 (CMS/HCC V24, CMS/HCC V28) from Last 3 Months Results * Thyroid stimulating hormone (08/23/2025 11:49 AM EDT) [facility] TSH 1.23 0.40 - 4.00 mcIU/mL LAB CHEMISTRY METHOD 08/23/2025 1:42 PM EDT [facility] Blood Blood sample taken from central line / Unknown Existing Catheter / Unknown 08/23/2025 11:49 AM EDT 08/23/2025 11:59 AM EDT us Aiden Mcnally MD LAB BLOOD ORDERABLE S Final Result [facility] [address] [place] [address], * (ABNORMAL) CBC auto differential (08/22/2025 12:58 PM EDT) Only the most recent of4 resultswithin the time period is included. [facility] WBC 7.9 4.8 - 10.8 K/mcL LAB HEMETOLOGY METHOD 08/22/2025 2:14 PM EDT [facility] RBC 3.60(L) 4.50 - 5.50 M/mcL LAB HEMETOLOGY METHOD 08/22/2025 2:14 PM EDT [facility] Hemoglobin 12.1(L) 13.5 - 17.5 g/dL LAB HEMETOLOGY METHOD 08/22/2025 2:14 PM EDT [facility] Hematocrit 39.1(L) 42.0 - 54.0 % LAB HEMETOLOGY METHOD 08/22/2025 2:14 PM EDT [facility] MCV 108.6(H) 79.0 - 98.0 FL LAB HEMETOLOGY METHOD 08/22/2025 2:14 PM EDT [facility] MCH 33.6(H) 27.0 - 32.0 pcg LAB HEMETOLOGY METHOD [facility]/22[facility]25 [facility] MCHC 30.9(L) 32.0 - 37.0 g/dL LAB HEMETOLOGY METHOD 08/22/2025 2:14 PM EDT [facility] RDW 18.1(H) 11.0 - 15.0 % LAB HEMETOLOGY METHOD 08/22[facility]2025 2:[facility] Platelets 263 130 - 400 K/mcL LAB HEMETOLOGY METHOD 08/22/2025 2:[facility] MPV 9.5 7.0 - 11.0 FL LAB HEMETOLOGY METHOD 08/22/2025 2:14 PM [facility] NRBC 0.0 <1.0 % LAB HEMETOLOGY METHOD 08/22/2025 2:14 PM [facility] NRBC Absolute 0.00 <0.10 K/mcL LAB HEMETOLOGY METHOD 08/22/2025 2:14 PM [facility] Neutrophils Relative 58.0 % LAB HEMETOLOGY METHOD 08/22/2025 2:14 PM [facility] Lymphocytes Relative 27.0 % LAB HEMETOLOGY METHOD 08/22/2025 2:14 PM [facility] Monocytes Relative 9.8 % LAB HEMETOLOGY METHOD 08/22/2025 2:14 PM [facility] Eosinophils Relative 3.9 % LAB HEMETOLOGY METHOD 08/22/2025 2:14 PM [facility] Basophils Relative 0.8 % LAB HEMETOLOGY METHOD 08/22/2025 2:14 PM [facility] Immature Granulocytes Relative 0.5 % LAB HEMETOLOGY METHOD 08/22/2025 2:14 PM EDT [facility] Neutrophils Absolute 4.58 1.50 - 7.00 K/mcL LAB HEMETOLOGY METHOD 08/22/2025 2:14 PM EDT [facility] Lymphocytes Absolute 2.13 1.00 - 5.00 K/mcL LAB HEMETOLOGY METHOD 08/22/2025 2:14 PM EDT [facility] Monocytes Absolute 0.77 0.20 - 1.00 K/mcL LAB HEMETOLOGY METHOD 08/22/2025 2:14 PM EDT [facility] Eosinophils Absolute 0.31 0.00 - 0.50 K/mcL LAB HEMETOLOGY METHOD 08/22/2025 2:14 PM EDT [facility] Basophils Absolute 0.06 0.00 - 0.20 K/mcL LAB HEMETOLOGY METHOD 08/22/2025 2:14 PM EDT [facility] Immature Granulocytes Absolute 0.04(H) 0.00 - 0.03 K/mcL LAB HEMETOLOGY METHOD 08/22/2025 2:14 PM EDT [facility] Blood Venous blood specimen / Unknown Venipuncture / Unknown 08/22/2025 12:58 PM EDT 08/22/2025 1:30 PM EDT us Subramony Uli GARCIA LAB BLOOD ORDERABLE S Final Result [facility] [address] [place] [address], * Lipase (08/22/2025 12:58 PM EDT) Only the most recent of4 resultswithin the time period is included. Lipase 25 13 - 75 unit/L LAB CHEMISTRY METHOD 08/22/2025 2:08 PM EDT [facility] Blood Venous blood specimen / Unknown Venipuncture / Unknown 08/22/2025 12:58 PM EDT 08/22/2025 1:30 PM EDT us Aiden Mcnally MD LAB BLOOD ORDERABLE S Final Result Performing Organization Address [facility] Co de Phone Number [facility] [address] [place] [address], [place] [phone] * Amylase (08/22/2025 12:58 PM EDT) Only the most recent of4 resultswithin the time period is included. Pathologist [facility] Amylase 28 25 - 115 unit/L LAB CHEMISTRY METHOD 08/22/2025 2:08 PM EDT [facility] Blood Venous blood specimen / Unknown Venipuncture / Unknown 08/22/2025 12:58 PM EDT 08/22/2025 1:30 PM EDT us Aiden Mcnally MD LAB BLOOD ORDERABLE S Final Result Performing Organization Address [facility] de Phone Number [facility] [address] [place] [address], [place] [phone] * (ABNORMAL) Comprehensive metabolic panel (08/22/2025 12:58 PM EDT) Only the most recent of4 resultswithin the time period is included. Sodium 137 133 - 145 mmol/L LAB CHEMISTRY METHOD 08/22/2025 2:08 PM EDT [facility] Potassium 4.2 3.5 - 5.5 mmol/L LAB CHEMISTRY METHOD 08/22/2025 2:08 PM EDT [facility] Chloride 103 96 - 110 mmol/L LAB CHEMISTRY METHOD 08/22/2025 2:08 PM EDT [facility] CO2 27 21 - 32 mmol/L LAB CHEMISTRY METHOD 08/22/2025 2:08 PM EDT [facility] Anion Gap 7 3 - 11 LAB CHEMISTRY METHOD 08/22/2025 2:08 PM [facility] Glucose 142(H) 70 - 100 mg/dL LAB CHEMISTRY METHOD 08/22/2025 2:08 PM [facility] BUN 8 5 - 25 mg/dL LAB CHEMISTRY METHOD 08/22/2025 2:08 PM [facility] Creatinine 0.95 0.70 - 1.30 mg/dL LAB CHEMISTRY METHOD 08/22/2025 2:08 PM [facility] eGFR 87 >=60 mL/min/1. 73m2 LAB CHEMISTRY METHOD 08/22/2025 2:08 PM [facility] Comment:Calculation based on the Chronic Kidney Disease Epidemiology Collaboration (CKD-EPI) equation refit without adjustment for race. BUN/Creatinine Ratio 8.4 LAB CHEMISTRY METHOD 08/22/2025 2:08 PM [facility] Calcium 9.1 8.5 - 10.5 mg/dL LAB CHEMISTRY METHOD 08/22/2025 2:08 PM [facility] AST (SGOT) 24 10 - 42 unit/L LAB CHEMISTRY METHOD 08/22/2025 2:08 PM [facility] ALT (SGPT) 23 10 - 60 unit/L LAB CHEMISTRY METHOD 08/22/2025 2:08 PM [facility] Alkaline Phosphatase 106 42 - 121 unit/L LAB CHEMISTRY METHOD 08/22/2025 2:08 PM [facility] Total Protein 6.6 6.0 - 8.0 g/dL LAB CHEMISTRY METHOD 08/22/2025 2:08 PM [facility] Albumin 3.0(L) 3.2 - 5.0 g/dL LAB CHEMISTRY METHOD 08/22/2025 2:08 PM [facility] Total Bilirubin 0.3 0.0 - 1.4 mg/dL LAB CHEMISTRY METHOD 08/22/2025 2:08 PM EDT [facility] Blood Venous blood specimen / Unknown Venipuncture / Unknown 08/22/2025 12:58 PM EDT 08/22/2025 1:30 PM EDT us Aiden Mcnally MD LAB BLOOD ORDERABLE S Final Result Performing Organization Address [facility] de Phone Number [facility] [address] [place] [address], [place] [phone] * Magnesium (08/01/2025 12:03 PM EDT) Only the most recent of3 resultswithin the time period is included. Magnesium 2.1 1.9 - 2.6 mg/dL LAB CHEMISTRY METHOD 08/01/2025 3:36 PM EDT [facility] Blood Venous blood specimen / Unknown Venipuncture / Unknown 08/01/2025 12:03 PM EDT 08/01/2025 1:38 PM EDT us Aiden Mcnally MD LAB BLOOD ORDERABLE S Final Result Performing Organization Address [facility] de Phone Number [facility] [address] [place] [address], [place] [phone] * PET CT Skull to Mid Thigh Subsequent (07/27/2025 11:41 AM EDT) Anatomical Region Laterality Modality Body Radiographic Ce ging 07/27/2025 2:46 PM EDT Impressions 07/27/2025 3:16 PM EDT Improved metabolic activity along left upper lobe lung mass as well as intrathoracic lymphadenopathy. -------- FINAL REPORT -------- Dictated By: Josep Jolley Dictated Date: 07/27/2025 14:46 ET Assigned Physician: Josep Jolley Reviewed and Electronically Signed By: Josep Jolley Signed Date: 07/27/2025 15:16 ET Workstation ID: [id number] Transcribed By: Self Edit Transcribed Date: 07/27/2025 14:55 ET Narrative 07/27/2025 3:16 PM EDT INDICATION: Lung carcinoma, subsequent treatment strategy Prior relevant studies: PET/CT dated April 13, 2025 Radiopharmaceutical: 10.8 mCi of F-18 FDG IV. Blood glucose: 111 mg/dl. PROCEDURE: Routine body FDG PET-CT imaging was performed from the skull base to the mid thighs and reconstructed in axial, coronal, and sagittal planes at the computer workstation with fused data from both the PET imaging study and attenuation correction CT. The CT portion of the examination was done strictly for attenuation correction and is not a true diagnostic CT examination. CTDI: 17.64 mGy FINDINGS: HEAD AND NECK: Resolved FDG activity in tiny left supraclavicular node. Subcentimeter right-sided preauricular node demonstrates mildly increased activity with FDG max of 2.5. THORAX: Persistent activity within left upper lobe lung mass with FDG max of 16.3, previously 20.9. FDG avid left hilar, subcarinal and right paratracheal lymphadenopathy with FDG max up to 6.6 in the left hilum previously 18.9, FDG max in the subcarinal region of 7.2 previously 12.4, FDG max in the right paratracheal region of 5.2 previously 18.0. Mild FDG activity within the right hilum FDG max of 3.6, new from the prior study. Mild activity within interstitial infiltrate within the medial left lower lobe with FDG max of 2.3. New interstitial infiltrative changes in the dependent aspect of the right upper lobe to the fissure with FDG max of 2.8. No FDG avid nodules in the right lung. Minimal FDG activity within small bilateral axillary nodes, unchanged. ABDOMEN/PELVIS: No abnormal FDG activity. MUSCULOSKELETAL: No abnormal FDG activity. Procedure Note Josep Jolley MD - 07/27/2025 INDICATION: Lung carcinoma, subsequent treatment strategy Prior relevant studies: PET/CT dated April 13, 2025 Radiopharmaceutical: 10.8 mCi of F-18 FDG IV. Blood glucose: 111 mg/dl. PROCEDURE: Routine body FDG PET-CT imaging was performed from the skullbase to the mid thighs and reconstructed in axial, coronal, and sagittalplanes at the computer workstation with fused data from both the PETimaging study and attenuation correction CT. The CT portion of theexamination was done strictly for attenuation correction and is not a truediagnostic CT examination. CTDI: 17.64 mGy FINDINGS: HEAD AND NECK: Resolved FDG activity in tiny left supraclavicular node. Subcentimeter right-sided preauricular node demonstrates mildly increasedactivity with FDG max of 2.5. THORAX: Persistent activity within left upper lobe lung mass with FDG maxof 16.3, previously 20.9. FDG avid left hilar, subcarinal and right paratracheal lymphadenopathywith FDG max up to 6.6 in the left hilum previously 18.9, FDG max in thesubcarinal region of 7.2 previously 12.4, FDG max in the rightparatracheal region of 5.2 previously 18.0. Mild FDG activity within the right hilum FDG max of 3.6, new from theprior study. Mild activity within interstitial infiltrate within the medial left lowerlobe with FDG max of 2.3. New interstitial infiltrative changes in thedependent aspect of the right upper lobe to the fissure with FDG max of2.8. No FDG avid nodules in the right lung. Minimal FDG activity within small bilateral axillary nodes, unchanged. ABDOMEN/PELVIS: No abnormal FDG activity. MUSCULOSKELETAL: No abnormal FDG activity. IMPRESSION: Improved metabolic activity along left upper lobe lung mass as well asintrathoracic lymphadenopathy. -------- FINAL REPORT -------- Dictated By: Josep Jolley Dictated Date: 07/27/2025 14:46 ET Assigned Physician: Josep Jolley Reviewed and Electronically Signed By: Josep Jolley Signed Date: 07/27/2025 15:16 ET Workstation ID: [id number] Transcribed By: Self Edit Transcribed Date: 07/27/2025 14:55 ET us Subramony Subramonia-Nitin KAUFMAN NM PROCEDURES F inal Result * MR Brain wo and w Contrast (07/26/2025 1:47 PM EDT) Anatomical Region Laterality Modality Head and Neck Magnetic Resonan ce 07/27/2025 5:30 PM EDT Impressions 07/27/2025 5:41 PM EDT No evidence of intracranial metastatic disease. -------- FINAL REPORT -------- Dictated By: Noam Dunne Dictated Date: 07/27/2025 17:30 ET Assigned Physician: Noam Dunne Reviewed and Electronically Signed By: Noam Dunne Signed Date: 07/27/2025 17:41 ET Workstation ID: [id number] Transcribed By: Self Edit Transcribed Date: 07/27/2025 17:30 ET Narrative 07/27/2025 5:41 PM EDT PROCEDURE: Contrast-enhanced MRI of the brain. HISTORY: Small cell lung cancer, restaging. TECHNIQUE: Multiplanar multisequence MRI of the brain with and without intravenous contrast. IV CONTRAST DOSE: 20 mL intravenous Dotarem from a 20 mL vial with 0 mL discarded. COMPARISON: 04/15/2025. FINDINGS: BRAIN: No diffusion abnormality. No mass or extra-axial fluid collection. No hydrocephalus. The major intracranial flow voids are preserved. Age commensurate ventricles and sulci. No abnormal enhancement. Stable scattered T2 hyperintensities in the supratentorial white matter suggestive of mild chronic microvascular ischemic disease. ORBITS: Normal. SINUSES/MASTOIDS: Mild mucosal thickening in the right frontal sinus. Left frontal sinus is not pneumatized. Small mucous retention cyst in left maxillary antrum. CALVARIUM: Normal. OTHER: The visualized skull base soft tissues are normal. Mild degenerative changes of the visualized cervical spine. Procedure Note Noam Dunne MD - 07/27/2025 PROCEDURE: Contrast-enhanced MRI of the brain. HISTORY: Small cell lung cancer, restaging. TECHNIQUE: Multiplanar multisequence MRI of the brain with and withoutintravenous contrast. IV CONTRAST DOSE: 20 mL intravenous Dotarem from a 20 mL vial with 0 mLdiscarded. COMPARISON: 04/15/2025. FINDINGS: BRAIN: No diffusion abnormality. No mass or extra-axial fluid collection.No hydrocephalus. The major intracranial flow voids are preserved. Agecommensurate ventricles and sulci. No abnormal enhancement. Stablescattered T2 hyperintensities in the supratentorial white mattersuggestive of mild chronic microvascular ischemic disease. ORBITS: Normal. SINUSES/MASTOIDS: Mild mucosal thickening in the right frontal sinus.Left frontal sinus is not pneumatized. Small mucous retention cyst inleft maxillary antrum. CALVARIUM: Normal. OTHER: The visualized skull base soft tissues are normal. Milddegenerative changes of the visualized cervical spine. IMPRESSION: No evidence of intracranial metastatic disease. -------- FINAL REPORT -------- Dictated By: Noam Dunne Dictated Date: 07/27/2025 17:30 ET Assigned Physician: Noam Dunne Reviewed and Electronically Signed By: Noam Dunne Signed Date: 07/27/2025 17:41 ET Workstation ID: [id number] Transcribed By: Self Edit Transcribed Date: 07/27/2025 17:30 ET Subramcarol ann Mcnally MD [facility] MRI PROCEDURES Final Result * (ABNORMAL) Manual differential (07/08/2025 1:13 PM EDT) Neutrophils % 37.0 % LAB HEMETOLOGY METHOD 07/08/2025 2:08 PM EDT [facility] Lymphocytes % 40.0 % LAB HEMETOLOGY METHOD 07/08/2025 2:08 PM T [facility] Monocytes % 23.0 % LAB HEMETOLOGY METHOD 07/08/2025 2:08 PM [facility] Eosinophils % 1.0 % LAB HEMETOLOGY METHOD 07/08/2025 2:08 PM [facility] Basophils % 0.0 % LAB HEMETOLOGY METHOD 07/08/2025 2:08 PM [facility] Neutrophils Absolute Manual 2.48 1.50 - 7.00 K/mcL LAB HEMETOLOGY [facility] Lymphocytes Absolute 2.68 1.00 - 5.00 K/mcL LAB HEMETOLOGY METHOD 07/08/2025 2:08 PM EDT [facility] Monocytes Absolute Manual 1.54(H) 0.20 - 1.00 K/[facility] HEMETOLOGY METHOD 07/08/2025 2:08 PM EDT [facility] Eosinophils Absolute Manual 0.07 0.00 - 0.50 K/[facility] HEMETOLOGY METHOD 07/08/2025 2:08 PM EDT [facility] Basophils Absolute Manual 0.00 0.00 - 0.20 K/[facility] HEMETOLOGY METHOD 07/08/2025 2:08 PM EDT [facility] Rbc Morphology Present( A) Consistent with indices, Normal for LAB HEMETOLOGY METHOD 07/08/2025 2:08 PM EDT [facility] Platelet Morphology - WAM See Note(A) Normal LAB HEMETOLOGY METHOD 07/08/2025 2:08 PM EDT [facility] Comment:PLT: Normal Polychromasia Present Present( A) (none) LAB HEMETOLOGY METHOD 07/08/2025 2:08 PM EDT [facility] Blood Venous blood specimen / Unknown Venipuncture / Unknown 07/08/2025 1:13 PM EDT 07/08/2025 1:34 PM EDT us Subramony SubEloisa GARCIA LAB BLOOD ORDERABLE S Final Result [facility] [address] [place] [address], * XR Chest 1 View (06/20/2025 5:25 PM EDT) Anatomical Region Laterality Modality Body Radiographic Ce ging 06/21/2025 8:08 AM EDT Impressions 06/21/2025 8:16 AM EDT No interval change. -------- FINAL REPORT -------- Dictated By: Noam Dunne Dictated Date: 06/21/2025 08:08 ET Assigned Physician: Noam Dunne Reviewed and Electronically Signed By: Noam Dunne Signed Date: 06/21/2025 08:16 ET Workstation ID: [id number] Transcribed By: Self Edit Transcribed Date: 06/21/2025 08:08 ET Narrative 06/21/2025 8:16 AM EDT PROCEDURE: AP chest radiograph. HISTORY: Cough, persistent portable [facility] second floor - room 1. COMPARISON: 05/19/2025. FINDINGS: Right-sided single-lumen port with the catheter tip in the lower SVC. Unchanged 3.7 cm masslike opacity in the periphery of the mid left lung. Unchanged cardiomediastinal contours with mild cardiomegaly. Stable linear markings at the lung bases. No pneumothorax. Stable mild pulmonary vascular congestion without pulmonary edema. Procedure Note Noma Dunne MD - 06/21/2025 PROCEDURE: AP chest radiograph. HISTORY: Cough, persistent portable [facility] second floor - room 1. COMPARISON: 05/19/2025. FINDINGS: Right-sided single-lumen port with the catheter tip in the lower SVC.Unchanged 3.7 cm masslike opacity in the periphery of the mid left lung.Unchanged cardiomediastinal contours with mild cardiomegaly. Stablelinear markings at the lung bases. No pneumothorax. Stable mildpulmonary vascular congestion without pulmonary edema. IMPRESSION: No interval change. -------- FINAL REPORT -------- Dictated By: Noam Dunne Dictated Date: 06/21/2025 08:08 ET Assigned Physician: Noam Dunne Reviewed and Electronically Signed By: Noam Dunne Signed Date: 06/21/2025 08:16 ET Workstation ID: [id number] Transcribed By: Self Edit Transcribed Date: 06/21/2025 08:08 ET us Subramony Subramonia-Nitin GARCIA IMG XR PROCEDURES F inal Result from Last 3 Months Insurance ETHAN [place]ACINTO [id number] [employer] MEDICARE Advance Directives * Full Code - Default (Latest Code Status on File) Date Activated Date Inactivated Comments 04/28/2025 12:26 PM 04/28/2025 8:01 PM This is ord er is used when code status has not been discussed with the patient, or code status is otherwise unknown/unconfirmed To update the patient's code status, place a code status order. Do not modify or discontinue any currently active code status orders. Care Teams Marketing Technologist Relationship Specialty Start Date End Date Alla Oro MD [address] [place] [address] PCP - General Internal Medicine 04/12/25
--- OUTSIDE RECORDS SUMMARY | 2025-09-08 12:09 | XMS_ITS ---
Author Organization [facility] [address] [facility] Address [address] [place] [address] Phone Care Team Providers Care Director Global Market Research Name Role Phone Alla Oro MD Primary Care Provider [phone] Active Problems Problem Noted Date Diagnosed Date Bilateral calf pain 07/12/2025 Drug-induced hypothyroidism 07/12/2025 Mediastinal lymphadenopathy 07/12/2025 Peripheral vascular disease (CMS/HCC V24) 2024 Small cell carcinoma of uppe r lobe of left lung (CMS/HCC V24, CMS/HCC V28) 05/04/2025 Cancer Staging:Clinical stage from 05/17/2025:Stage IIIC(cT3, cN3, cM0) - Signed by Chris Steward MD on 05/17/2025 Assessment & Plan (05/05/2025 12:34 PM EDT): Mr. Harper is a 69-year-old male who was noted [...] be needed in the future. Sciatica 11/18/2005 Current Treatment and Therapy Plans Atezolizumab ( Every 21 days / 1,200 mg )* Plan Start Date:08/01/2025 Plan Provider:Aiden Mcnally MD Linked Problems Small cell carcinoma of uppe r lobe of left lung (CMS/HCC V24, CMS/HCC V28)Drug-induced hypothyroidism Treatment Medications Current Day (Day 1 , Cycle 3 - Planned for 09/13/2025) Next Day (Day 1, Cycle 4 - Planned for 10/04/2025) atezolizumab (TECENTRIQ)atezolizumab (TECENTRIQ) chemo IVPB in 250 mL NS atezolizumab (TECENTRIQ) 1,200 mg in sodium chloride 270 mL chemo IVPB atezolizumab (TECENTRIQ) 1,200 mg in sodium chloride 270 mL chemo IVPB Past Treatment and Therapy Plans Oncology Treatment Plan Name Start Date Discontinue Date Treatment Medications Discontinue Reason Plan Provider Cycles Atezolizumab + CARBOplatin / Etoposide followed by Atezolizumab Maintenance (ordered separately) 5 08/02/2025 atezolizumab (TECENTRIQ)atez olizumab (TECENTRIQ) chemo IVPB in 250 mL NSCARBOplatin (PARAPLATIN)CAR BOplatin (PARAPLATIN) chemo 250 mL IVPB (by AUC)etoposide (TOPOSAR)etopos tho (VEPESID) chemo IVPB NS 500 mL (60 minutes) - Therapy Complete Subramcarol ann Taveras MD 4 of 4 cycles started CISplatin ( 25 mg/m2 ) / Etoposide ( 100 mg/m2 ) - Small Cell Lung Cancer 5 05/17/2025 CISplatin (PLATINOL)CISpl atin (PLATINOL) chemo IVPB NS 500 mLetoposide (TOPOSAR)etopos tho (VEPESID) chemo IVPB NS 500 mL (60 minutes) Change in Level of Care Aiden Taveras MD 1 of 4 cycles started
== END 2025-09-08 12:01 | disposition home or self-care (01) ==
LOC: HO.HMCC 10:06
PROVIDERS: PCP Internal Medicine; Visit Provider Internal Medicine
DX: Z00.00 Encounter for general adult medical examination without abnormal findings (principal); I73.9 Peripheral vascular disease, unspecified; C34.90 Malignant neoplasm of unspecified part of unspecified bronchus or lung; J44.9 Chronic obstructive pulmonary disease, unspecified; E78.5 Hyperlipidemia, unspecified; R06.09 Other forms of dyspnea

== ENCOUNTER → 2025-09-08 10:06 | Outpatient (BNVA) | payer MEDICARE, SELFPAY | PROVIDERS: PCP Internal Medicine; Visit Provider Internal Medicine | DX: Z00.00 Encounter for general adult medical examination without abnormal findings (principal); E78.5 Hyperlipidemia, unspecified; C34.90 Malignant neoplasm of unspecified part of unspecified bronchus or lung; J44.9 Chronic obstructive pulmonary disease, unspecified; R06.09 Other forms of dyspnea; I73.9 Peripheral vascular disease, unspecified | CPT/HCPCS: 99397 ==

== ENCOUNTER 2025-09-29 07:59 | Outpatient (AMB) | payer MEDICARE, SELFPAY ==
--- NOTE | 2025-09-29 08:01 | A.OFFPC_ITS ---
Vital Signs 09/29/25 08:02 Height 5 ft 8 in Weight 199 lb BMI 30.3 BP 120/64 Respiration 18 Pulse 96 Pulse Source Pulse Oximeter Pulse Oximetry (%) 94 Oxygen Delivery Method Nasal Cannula Oxygen Flow Rate 4 Intake Visit Reasons: HDF pneumonia Group Art Supervisor Required: No Accompanied by: Self / Same As Patient Allergies Penicillins Adverse Reaction (Verified 09/29/25 08:08) Shortness of Breath Medication List - Last Reconciled 09/29/25 by Alla Oro MD acetaminophen ER (Tylenol 8 Hour) 650 mg PO Q12H Anoro Ellipta 62.5-25 mcg/actuation (umeclidinium-vilanterol) 1 ea PO DAILY NS atorvastatin (Lipitor) 10 mg PO BEDTIME cefpodoxime 200 mg PO BID cyanocobalamin (vitamin B-12) 1,000 mcg PO DAILY furosemide (Lasix) 20 mg PO DAILY guaifenesin ER 600 mg PO BID ipratropium-albuterol 0.5 mg-3 mg(2.5 mg base)/3 mL 3 mL inhalation Q6H meloxicam 15 mg PO DAILY prednisone 10 mg PO DIRECTED varenicline tartrate (Chantix Starting Month Box) PO PER PKG DIR varenicline tartrate (Chantix Continuing Month Box) 1 mg PO BID Tobacco use date assessed: 09/29/25 Fall risk assessment: No Falls in past year Last assessed Fall Risk: 09/29/25 Dental Screening Dental Screen Date: 09/29/25 Did you have a dental visit in the last 12 months?: Yes Did you have a dental problem in the last 6 months where you did not have access to dental care?: No Was dental information given to patient?: Patient declined HPI HDF pneumonia HPI Details Pt presents for f/u of hospitalization at [facility] for bilateral pneumonia from 09/17 -09/21. Pt was discharged on supplemental O2 prednisone taper and cefpodoxime and has been slowly improving. Patient has a VNA services and will be starting pulmonary rehab. He is established with [facility] Oncology for chemotherapy for small-cell lung [facility] Medical History (Updated 09/29/25 @ 08:29 by Alla Oro MD) Colonoscopy refused PAD (peripheral artery disease) Small cell lung cancer Vitamin B 12 deficiency Macrocytic anemia COPD (chronic obstructive pulmonary disease) Hyperlipidemia Bilateral carotid bruits Tobacco dependence Lung nodule Trigger finger Annual physical exam HTN (hypertension) Surgical History No pertinent past surgical history Family History Father No problems noted. 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 1. Little interest or pleasure in doing things: not at all 2. Feeling down, depressed, or hopeless: not at all 3. Trouble falling or staying asleep, or sleeping too much: not at all 4. Feeling tired or having little energy: not at all 5. Poor appetite or overeating: not at all 6. Feeling bad about yourself - or that you are a failure or have let yourself or your family down: not at all 7. Trouble concentrating on things, such as reading the newspaper or watching television: not at all 8. Moving or speaking so slowly that other people could have noticed. Or the opposite - being so fidgety or restless that you have been moving around a lot more than usual: not at all 9. Thoughts that you would be better off or of hurting yourself in some way: not at all Total score: 0 Depression Screening Interpretation: Negative Depression Screening Done: Yes 75010 - PHQ-9 Billing: Yes Source: Developed by Drs. Jasiel Morris, Ghislaine Davison, Damion Mccarthy and colleagues, with an educational betty from [employer]. Thrive Questionnaire Date Thrive assessed: 01/11/25 I am a: Patient What is your living situation today?: I choose not to answer this question Within the past 12 months, did the food you bought not last and you didn't have the money to get more?: I choose not to answer this question Within the past 12 months, did you worry whether your food would run out before you got money to buy more?: I choose not to answer this question Do you have trouble paying for medicines?: No Do you have trouble getting transportation to medical appointments?: No Do you have trouble paying your heating and electricity bill?: No Do you have trouble taking care of your child, family member or friend?: No Do you have trouble with day-to-day activities such as bathing, preparing meals, shopping, managing finances, etc.?: I choose not to answer this question Are you currently unemployed and looking for a job?: I choose not to answer this question Are you interested in more education?: I choose not to answer this question Please select the resources that you would like help with: None Currently or been in a relationship where the following occur: I choose not to answer THRIVE Score: 0 KRISTOPHER-7 AMB Questionnaire KRISTOPHER-7 Date KRISTOPHER - 7 assessed: 09/29/25 Feeling nervous, anxious, or on edge: 0 = Not at all Not being able to stop or control worryin = Not at all Worrying too much about different things: 0 = Not at all Trouble relaxin = Not at all Being so restless that it is hard to sit still: 0 = Not at all Becoming easily annoyed or irritable: 0 = Not at all Feeling afraid as if something awful might happen: 0 = Not at all Total KRISTOPHER-7 score (0-4 normal; 5-9 mild; 10-14 moderate; 15-21 severe): 0 Source: Developed by Drs. Jasiel Morris, Ghislaine Davison, Damion Mccarthy and colleagues, with an educational betty from [employer]. KRISTOPHER-7 Assessment Billing KRISTOPHER-7 Assessment Tool: KRISTOPHER-7 Assessment 49484 Review of Systems Const All systems reviewed & are unremarkable except as noted in HPI and below Eyes Reports no additional complaints ENT Reports no additional complaints Card Reports no additional complaints Resp Reports no additional complaints GI Reports no additional complaints Reports no additional complaints Physical exam (Primary Care) Vital Signs: Last Vital Signs Pulse 96 09/29/25 08:02 Resp 18 09/29/25 08:02 BP 120/64 09/29/25 08:02 Pulse Ox 94 09/29/25 08:02 Oxygen Delivery Method Nasal Cannula 09/29/25 08:02 Oxygen Flow Rate 4 09/29/25 08:02 BMI result Body Mass Index 30.3 Tobacco/Smoking Status: Tobacco use Status Tobacco use date assessed 09/29/25 09/29/25 08:13 Patient Tobacco Use Status Current everyday Tobacco 09/29/25 08:13 Tobacco use type Cigarette 09/29/25 08:13 e-Cigarette/Vaping Use Never Used 09/29/25 08:13 PHQ-9: PHQ-9 Score PHQ-9: Total score 0 09/29/25 08:13 Depression Screening Interpretation: Negative Thrive Assessment: Date of Thrive Assessment Date Thrive assessed 01/11/25 09/29/25 08:13 Currently or been in a relationship where the following occur: I choose not to answer Const General: no acute distress HENMT Head: Yes normal to inspection Mouth: Normal oral and palatal mucosa present Eyes General: appearance normal, both eyes and all related structures Neck Neck: Yes no lymphadenopathy and Yes supple Resp Effort & Inspection: normal respiratory effort Auscultation: diminished lung sounds Cardio Rhythm: regular rhythm Heart sounds: S1 normal heart sound present and S2 normal heart sound present GI Inspection: Yes normal to inspection Extrem Other: 1+ pitting edema bilaterally Coding Level of Care Code TCM Mod MDM <= 14 Days Diagnoses Small cell lung cancer C34.90 COPD (chronic obstructive pulmonary disease) J44.9 Additional Codes KRISTOPHER-7 Assessment Billing - KRISTOPHER-7 Assessment Tool: KRISTOPHER-7 Assessment [id number] ([id number]) PHQ-9 - 36664 - PHQ-9 Billing: Yes ([id number]) Assessment & Plan Assessment & Plan (1) Small cell lung cancer: Comment: dxd 04/2025, txd Ketty chemo therapy and will have consolidation RTx Code(s): C34.90 - Malignant neoplasm of unspecified part of unspecified bronchus or lung Category: Medical Plan: f/u oncology, cont immunotherapy (2) COPD (chronic obstructive pulmonary disease): Comment: O 2 dependent, established with pul Code(s): J44.9 - Chronic obstructive pulmonary disease, unspecified Category: Medical Plan: cont Anoro and supplemental O2, patient will be starting pulmonary rehab at [facility] and will follow-up with cyber security analyst at [facility] Medications: New albuterol sulfate 90 mcg/actuation (Ventolin HFA) 2 puffs inhalation Q6H PRN 8.5 grams 3RF shortness of breath or wheezing
[2025-09-29 08:02] VITALS: BP 120/64; PULSE 96; RESP 18; O2SAT 94; BMI 30.3
== END 2025-09-29 09:02 | disposition home or self-care (01) ==
LOC: HO.HMCC 08:00
PROVIDERS: PCP Internal Medicine; Visit Provider Internal Medicine
DX: C34.90 Malignant neoplasm of unspecified part of unspecified bronchus or lung (principal); J44.9 Chronic obstructive pulmonary disease, unspecified

== ENCOUNTER → 2025-09-29 07:59 | Outpatient (BNVA) | payer MEDICARE, SELFPAY | PROVIDERS: PCP Internal Medicine; Visit Provider Internal Medicine | DX: J44.9 Chronic obstructive pulmonary disease, unspecified (principal); C34.90 Malignant neoplasm of unspecified part of unspecified bronchus or lung | CPT/HCPCS: 96127; 99212 ==

== ENCOUNTER → 2025-10-10 23:59 | Outpatient (BNV) | payer MEDICARE, SELFPAY | PROVIDERS: PCP Internal Medicine; Visit Provider Internal Medicine | DX: J18.8 Other pneumonia, unspecified organism (principal); J44.0 Chronic obstructive pulmonary disease with (acute) lower respiratory infection; E53.8 Deficiency of other specified B group vitamins | CPT/HCPCS: G0180 ==